=== PATIENT | male | born 1940 | race Caucasian/White ===

== ENCOUNTER 2018-08-13 02:51 | Emergency (ER) | payer MEDICARE, OTHER ==
[~2018-08-13] VITALS: Ht 182.9 cm; Wt 130.2 kg
[~2018-08-13 02:51] MED LIST: ALLOPURINOL100 MG PO; CARVEDILOL12.5 MG PO; CITALOPRAM HBR40 MG PO; CLOPIDOGREL75 MG PO; COLESTIPOL HCL1 GM PO; DEXILANT30 MG PO; DOXAZOSIN MESYLA8 MG PO; HYDRALAZINE HCL25 MG PO; ISOSORBIDE MONO60 MG PO; LOSARTAN POTASS50 MG PO; NITROSTAT0.4 MG SL; NOVOLOG100 UNITS/ IV; TORSEMIDE20 MG PO; TOUJEO SOL300 UNIT/1 SQ; TRADJENTA5 MG PO
== END 2018-08-13 03:40 | disposition home or self-care (01) ==
LOC: ED 02:51
PROC: 093K7ZZ Control Bleeding in Nasal Mucosa and Soft Tissue, Via Natural or Artificial Opening (ICD-10-PCS; principal; 2018-08-13)
DX: R04.0 Epistaxis (principal); I10 Essential (primary) hypertension; F41.0 Panic disorder [episodic paroxysmal anxiety]; E11.9 Type 2 diabetes mellitus without complications; I25.2 Old myocardial infarction; Z87.891 Personal history of nicotine dependence; Z88.8 Allergy status to other drugs, medicaments and biological substances; Z79.899 Other long term (current) drug therapy; Z79.4 Long term (current) use of insulin
CPT/HCPCS: 30903; 99283-25

== ENCOUNTER 2018-08-14 12:56 | Emergency (ER) | payer MEDICARE, OTHER ==
[~2018-08-14] VITALS: Ht 182.9 cm; Wt 130.2 kg
--- OUTSIDE RECORDS SUMMARY | 2018-08-14 12:58 | XMS ---
PreManage Notification: DEXTER DAVE Security Polisher Balance Screwhead Events No recent Security Events currently on file CRITERIA MET - [facility] - 2 Visits in 30 Days CARE PROVIDERS Devaughn Simmons Current PHONE: Unknown Other Current PHONE: Unknown Florencia has no Care Guidelines for this patient. Yris VISIT COUNT ([address] [facility] TOTAL 2 NOTE: Visits indicate total known visits. ED/UCC VISIT TRACKING (12 MO.) 08/14/2018 12:56 [facility] [place] TYPE: Emergency COMPLAINT: - RECHECK 08/13/2018 02:51 [facility] [place] TYPE: Emergency COMPLAINT: - NOSE BLEED INPATIENT VISIT TRACKING (12 MO.) No inpatient visits to display in this time frame [email or web address]
== END 2018-08-14 13:38 | disposition home or self-care (01) ==
LOC: ED 12:56
DX: Z48.00 Encounter for change or removal of nonsurgical wound dressing (principal); I10 Essential (primary) hypertension; F41.0 Panic disorder [episodic paroxysmal anxiety]; E11.9 Type 2 diabetes mellitus without complications; I25.2 Old myocardial infarction; Z87.891 Personal history of nicotine dependence; Z95.5 Presence of coronary angioplasty implant and graft; Z88.6 Allergy status to analgesic agent; Z79.4 Long term (current) use of insulin; Z79.899 Other long term (current) drug therapy
CPT/HCPCS: 99282

== ENCOUNTER 2019-03-25 11:37 | Emergency (ER) | payer MEDICARE, OTHER ==
[~2019-03-25] VITALS: Ht 182.9 cm; Wt 127.0 kg
--- OUTSIDE RECORDS SUMMARY | ~2019-03-25 | XMS | Encounter Summary ---
Demographics + + + | Address | [address] | | | [place] [address] | + + + | Home Phone | | + + + | Preferred Language | Unknown | + + + | Marital Status | | + + + | Orthodox Affiliation | Unknown | + + + | Race | Unknown | + + + | Ethnic Group | Unknown | + + + Author + + + | Author | [employer] [facility] (Historical as of | | | 01-30-19) | + + + | Organization | [facility] (Historical as of | | | 01-30-19) | + + + | Address | Unknown | + + + | Phone | Unavailable | + + + Support + + +---------+ + | Name | Relationship | Address | Phone | + + +---------+ + | Hammad Llamas | ECON | Unknown | | + + +---------+ + | Paco Llamas | ECON | Unknown | | + + +---------+ + | Gopal Llamas | ECON | Unknown | | + + +---------+ + Care Team Providers + +------+ + | Care Car Pilot Name | Role | Phone | + +------+ + | James Houston MD | PCP | | + +------+ + Reason for Visit + + + | Reason | Comments | + + + | Medication Refill | | + + + Encounter Details +--------+--------+ + + + | Date | Type | Department | Care Team | Description | +--------+--------+ + + + | 01/25/ | Refill | [facility] | Mora, | Medication Refill | | 2019 | | [facility] | [facility] | | | | | [address] | | | | | | [place] | | | | | | [address] | | | | | | [phone] | | | +--------+--------+ + + + Social History + + + +--------+ + | Tobacco Use | Types | Packs/Day | Years | Date | | | | | Used | | + + + +--------+ + | Former Smoker | Cigarettes | 3 | 20 | Quit: 06/16/1985 | + + + +--------+ + + +---+---+ + | Smokeless Tobacco: | | | Quit: | | Former User | | | 06/20/18 | | | | | 86 | + +---+---+ + + + +---------+ + | Alcohol Use | Drinks/We | oz/Week | Comments | | | ek | | | + + +---------+ + | Yes | 1 Cans | 0.6 | | | | of beer | | | | | 0 | | | | | Standard | | | | | drinks or | | | | | | | | | | equivalen | | | | | t | | | + + +---------+ + + + + | Sex Assigned at | Date Recorded | | | | + + + | Not on file | | + + + as of this encounter Plan of Treatment Not on fileas of this encounter Visit Diagnoses + + | Diagnosis | + + | Hyperlipidemia LDL goal <100 | + + | Other and unspecified hyperlipidemia | + +"
--- OUTSIDE RECORDS SUMMARY | ~2019-03-25 | XMS | Encounter Summary ---
Demographics + + + | Address | [address] | | | [place] [address] | + + + | Home Phone | | + + + | Preferred Language | Unknown | + + + | Marital Status | | + + + | Shinto Affiliation | Unknown | + + + | Race | Unknown | + + + | Ethnic Group | Unknown | + + + Author + + + | Author | [employer] [facility] (Historical as of | | | 01-30-19) | + + + | Organization | [facility] (Historical as of | | | 01-30-19) [...] Team Providers + +------+ + | Care Suction Drum Drier Operator Name | Role | Phone | + +------+ + | James Houston MD | PCP | | + +------+ + Encounter Details +--------+ + + + + | Date | Type | Department | Care Team | Description | +--------+ + + + + | 01/15/ | Orders Only | [facility] | Bassem, | CKD (chronic kidney | | 2019 | | [address] | SHERRELL Heard | disease) stage 3, | | | | [address] | | GFR 30-59 ml/min | | | | [place] [address] | | ([facility]); Essential | | | | [phone] | | hypertension, | | | | | | benign; | | | | | | Hyperuricemia | +--------+ + + + + Social History + + [...] Treatment Not on fileas of this encounter Procedures + +--------+ + + + | [...] | | + +--------+ + + + in this encounter Results Uric acid (01/14/2019 1:55 PM) + +-------+ [...] + + + | [facility] | [address] | [place] [address] | [phone] | | LABORATORY | Blvd. | | | + + + + + Protein / creatinine ratio, urine (01/14/2019 1:55 [...] | + + + + + | [facility] | [address] | [place] [address] | [phone] | | LABORATORY | Blvd. | | [...] + + + | [facility] | [address] | [place] [address] | [phone] | | LABORATORY | Blvd. | | | + + + + + Magnesium (01/14/2019 1:55 PM) + +-------+ + + | Component | Value | Ref Range | Performed At | + +-------+ + + | MAGNESIUM | 1.8 | 1.7 - 2.5 mg/dL | [facility] | | | | | LABORATORY | + +-------+ + + + + | Specimen | + + | Blood | + + + + + + + | Performing | Address | City/State/Zipcode | Phone Number | | Organization | | | | + + + + + | [facility] | [address] | [place] [address] | [phone] | | LABORATORY | [address] | | [...] + + + | [facility] | [address] | [place] [address] | [phone] | | LABORATORY | [place] | | | + + + + + in this encounter Visit Diagnoses + + | Diagnosis | + + | CKD (chronic kidney disease) stage 3, GFR 30-59 ml/min (HCC) | + + | Chronic kidney disease, Stage III (moderate) | + + | Essential hypertension, benign | + + | Hyperuricemia | + + | Other abnormal blood chemistry | + +"
--- OUTSIDE RECORDS SUMMARY | ~2019-03-25 | XMS | Encounter Summary ---
Demographics + + + | Address | [address] | | | [place] [address] | + + + | Home Phone | | + + + | Preferred Language | Unknown | + + + | Marital Status | | + + + | Scientology Affiliation | Unknown | + + + | Race | Unknown | + + + | Ethnic Group | Unknown | + + + Author + + + | Author | [facility] (Historical as of | | | 01-30-19) | + + + | Organization | [facility] (Historical as of | | | 01-30-19) | + + + | Address | Unknown | + + + | Phone | Unavailable | + + + Support + + +---------+ + | Name | Relationship | Address | Phone | + + +---------+ + | Hammad Llamas | ECON | Unknown | | + + +---------+ + | Paco Llaams | ECON | Unknown | | + + +---------+ + | Gopal Llamas | ECON | Unknown | | + + +---------+ + Care Team Providers + +------+ + | Care Supervisor Ornamental Ironworking Name | Role | Phone | + +------+ + | James Houston MD | PCP | | + +------+ + Reason for Visit + + + | Reason | Comments | + + + | Labs Only | | + + + Encounter Details +--------+ + + + + | Date | Type | Department | Care Team | Description | +--------+ + + + + | 12/29/ | Documentati | [facility] | Marquez Cuellar MA | Labs Only | | 2019 | on Only | [facility] | | | | | | [address] | | | | | | [place] | | | | | | [address] | | | | | | [phone] | | | +--------+ + + + [...]
--- OUTSIDE RECORDS SUMMARY | ~2019-03-25 | XMS | Encounter Summary ---
Demographics + + + | Address | [address] | | | [place] [address] | + + + | Home Phone | | + + + | Preferred Language | Unknown | + + + | Marital Status | | + + + | Presybeterian Affiliation | Unknown | + + + | Race | Unknown | + + + | Ethnic Group | Unknown | + + + Author + + + | Author | [employer] [facility] (Historical as of | | | 01-30-19) | + + + | Organization | [facility] (Historical as of | | | 01-30-19) [...] Team Providers + +------+ + | Care Staff Weapons Officer Name | Role | Phone | + +------+ + | James Houston MD | PCP | | + +------+ + Reason for Visit +--------+ + | Reason | Comments | +--------+ + | Other | appt/labs reminder | +--------+ + Encounter Details +--------+ + + + + | Date | Type | Department | Care Team | Description | +--------+ + + + + | 01/07/ | Telephone | [facility] | Sara, | Other (appt/labs | | 2018 | | [address] | [address] | reminder) | | | | [address] | | | | | | [place] [address] | | | | | | [phone] | | | +--------+ + + + [...]
--- OUTSIDE RECORDS SUMMARY | ~2019-03-25 | XMS | Encounter Summary ---
Demographics + + + | Address | [address] | | | [place] [address] | + + + | Home Phone | | + + + | Preferred Language | Unknown | + + + | Marital Status | | + + + | Rastafari Affiliation | Unknown | + + + | Race | Unknown | + + + | Ethnic Group | Unknown | + + + Author + + + | Author | [employer] (Historical as of | | | 01-30-19) | + + + | Organization | [facility] [employer] (Historical as of | | | 01-30-19) [...] Team Providers + +------+ + | Care Water Technician Name | Role | Phone | + +------+ + | James Houston MD | PCP | | + +------+ + Reason for Visit + + + | Reason | Comments | + + + | Labs Only | Collected 12/25/18 | + + + Encounter Details +--------+ + + + + | Date | Type | Department | Care Team | Description | +--------+ + + + + | 01/08/ | Documentati | [facility] | Magda Turner | Labs Only (Collected | | 2019 | on Only | Muriel [facility]agat | JAK | 12/25/18) | | | | [address] | | | | | | [place] | | | | | | [address] | | | | | | [phone] | | | +--------+ + + + [...]
--- OUTSIDE RECORDS SUMMARY | ~2019-03-25 | XMS | Clinical Summary ---
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 | + + Resolved Problems + + [...] | | 2019 | Visit | | NURSING CONSULTANT | disease) stage 3, | | | | | | GFR 30-59 ml/min | | | | | | ([facility]) (Primary Dx); | | | | | [...] ml/min | | | | | | ([facility]); Essential | | | | | | hypertension, | | | | | | benign; | | | | | | Hyperuricemia | +--------+ + + + + | 01/08/ | Documentati | | Magda Turner | Labs Only (Collected | 2018 | on Only | | CONSTITUTIONAL LAW PROFESSOR | 12/25/18) | +--------+ + + + [...] + + + | [facility] | [address] | [place] [address] | [phone] | | LABORATORY | [address]vd. | | [...] + + + | [facility] | [address] | [place] [address] | [phone] | | LABORATORY | Blvd. | | [...] + + + | [facility] | [address] | [place] [address] | [phone] | | LABORATORY | [address]vd. | | | + + + + + Magnesium (01/14/2019 1:55 PM) + +-------+ + + | Component | Value | Ref Range | Performed At | + +-------+ + + | MAGNESIUM | 1.8 | 1.7 - 2.5 mg/dL | [facility] | | | | | LABORATORY | + +-------+ + + + + | Specimen | + + | Blood | + + + + + + + | Performing | Address | City/State/Zipcode | Phone Number | | Organization | | | | + + + + + | [facility] | [address] | [place] [address] | [phone] | | LABORATORY | [address] | | [...] | + + + + + | [facility] | [address] | [place] [address] | [phone] | | LABORATORY | Blvd. | | [...] +------+-------+ + | MEDICARE | MEDICA | [id number] | | | [address] | | | [place] | | | | [place] [address] | | | IP-OP | | | | | + +--------+ +------+-------+ + | MEDICAID | [facility] | [id number] | | | [address] | | | N | | | | [place], [place] | | | [place] | | | | [address] | | | COOLING TOWER OPERATOR | | | | | + +--------+ [...] | Self | [birth year] | Home: | [address] | | | [place] | | 1941 | [phone] [address] [place], | | | ge | | | [address] | [place] [address] | + +--------+ +--------+ + +
--- OUTSIDE RECORDS SUMMARY | ~2019-03-25 | XMS | Encounter Summary ---
Demographics + + + | Address | [address] | | | [place] [address] | + + + | Home Phone | | + + + | Preferred Language | Unknown | + + + | Marital Status | | + + + | Yarsanism Affiliation | Unknown | + + + | Race | Unknown | + + + | Ethnic Group | Unknown | + + + Author + + + | Author | [facility] | | | and [place] | + + + | Organization | [facility] | | | and [...] Team Providers + +------+ + | Care Physician Representative Name | Role | Phone | + +------+ + | James Houston | PCP | | | MD | | | + +------+ + Encounter Details +--------+ + + + + | Date | Type | Department | Care Team | Description | +--------+ + + + + | 01/25/ | Orders Only | [facility] | Sherri Barraza | | | 2018 | | CARDIOLOGY KP | [address] | | | | | [address] | [address] | | | | | [place], [place] | [place], [place] | | | | | [address] | [address] | | | | | [phone] | | | +--------+ + + + [...]
--- OUTSIDE RECORDS SUMMARY | ~2019-03-25 | XMS | Encounter Summary ---
Demographics + + + | Address | [address] | | | [place] [address] | + + + | Home Phone | | + + + | Preferred Language | Unknown | + + + | Marital Status | | + + + | Holiness Affiliation | Unknown | + + + | Race | Unknown | + + + | Ethnic Group | Unknown | + + + Author + + + | Author | [employer] [facility] (Historical as of | | | 01-30-19) | + + + | Organization | [facility] (Historical as of | | | 01-30-19) [...] Team Providers + +------+ + | Care Carton Making Machinist Name | Role | Phone | + [...] [place] | | | | | | [address] | | | | | | [phone] | | | +--------+ + + + [...]
--- OUTSIDE RECORDS SUMMARY | ~2019-03-25 | XMS | Clinical Summary ---
Demographics + + + | Address | [address] | | | [place] [address] | + + + | Home Phone | | + + + | Preferred Language | Unknown | + + + | Marital Status | | + + + | Faith Affiliation | Unknown | + + + | Race | Unknown | + + + | Ethnic Group | Unknown | + + + Author + + + | Author | [facility] | | | and [place] | + + + | Organization | [facility] | | | [...] Team Providers + +------+ + | Care Steam Distribution Supervisor Name | Role | Phone | + +------+ + | James Houston | PCP | | | MD | | | + +------+ + Allergies + [...] | + + + + + + Medications + + + +---------+------+------+-------+ | Medication | Sig | Dispensed | Refills | Star | End | Statu | | | | | | t | Date | s | | | | | | Date | | | + + + +---------+------+------+-------+ | CINNAMON PO | Take 2 tablets by | | 0 | 09/0 | | Activ | | | mouth daily. | | | 4/20 | | e | | | | | | 15 | | | + + + +---------+------+------+-------+ | linagliptin | Take 5 mg by mouth | | 0 | 08/1 | | Activ | | (TRADJENTA) 5 mg | nightly. | | | 7/20 | | e | | tablet | | | | 12 | | | + + + +---------+------+------+-------+ | hydrALAZINE | Take 25 mg by mouth | | 0 | 08/1 | | Activ | | (APRESOLINE) 25 mg | 2 (two) times daily. | | | 01/02 | | e | | tablet | | | | 12 | | | + + + +---------+------+------+-------+ | dexlansoprazole | Take 30 mg by mouth | | 0 | 03/0 | | Activ | | (DEXILANT) [address] | every evening. | | | 12/03 | | e | | capsule | | | | 15 | | | + + + +---------+------+------+-------+ | citalopram | Take 40 mg by mouth | | 0 | 01/0 | | Activ | | (CELEXA) 40 mg | daily. | | | 11/02 | | e | | tablet | | | | 12 | | | + + + +---------+------+------+-------+ | cholecalciferol | Take 5,000 Units by | | 0 | /2 | | Activ | | (CHOLECALCIFEROL) | mouth daily. | | | 01/02 | | e | | 2000 units TABS | | | | 17 | | | + + + +---------+------+------+-------+ | HUMULIN R U-500 | 95 units am, 65 noon | | 0 | 01/1 | | Activ | | KWIKPEN 500 UNIT/ML | , 95 units pm, | | | 8/20 | | e | | concentrated | varies with blood | | | 18 | | | | injection (pen) | sugar | | | | | | + + + +---------+------+------+-------+ | allopurinol | Take 1 tablet by | 90 | 3 | 07/3 | | Activ | | (ZYLOPRIM) 100 mg | mouth daily. | tablet | | 0/20 | | e | | tablet | | | | 18 | | | + + + +---------+------+------+-------+ | carvedilol (COREG) | take 1 tablet by | 180 | 3 | 05/2 | | Activ | | 25 mg tablet | mouth twice a day | tablet | | 0/20 | | e | | | with meals | | | 19 | | | + + + +---------+------+------+-------+ | losartan (COZAAR) | Take 1 tablet by | 90 | 3 | 06/1 | | Activ | | 25 mg tablet | mouth nightly. | tablet | | 0/20 | | e | | | | | | 19 | | | + + + +---------+------+------+-------+ | magnesium, as | Take 250 mg by mouth | | 0 | 06/1 | | Activ | | oxide, 250 MG tablet | daily. | | | 0/20 | | e | | | | | | 19 | | | + + + +---------+------+------+-------+ | clopidogrel | Take 1 tablet by | 90 | 3 | 06/1 | | Activ | | (PLAVIX) 75 mg | mouth daily. | tablet | | 0/20 | | e | | tablet | | | | 19 | | | + + + +---------+------+------+-------+ | fenofibrate | Take 1 tablet by | 90 | 3 | 06/1 | 06/0 | Activ | | (LOFIBRA) 54 mg | mouth daily. | tablet | | 0/20 | 9/20 | e | | tablet | | | | 19 | 20 | | + + + +---------+------+------+-------+ | torsemide | Take 1 tablet by | 90 | 3 | 06/1 | | Activ | | (DEMADEX) 10 mg | mouth daily. | tablet | | 0/20 | | e | | tablet | | | | 19 | | | + + + +---------+------+------+-------+ | nitroglycerin | Place 1 tablet under | 25 | 3 | 06/1 | | Activ | | (NITROSTAT) 0.4 mg | the tongue every 5 | tablet | | 0/20 | | e | | SL tablet | (five) minutes as | | | 19 | | | | | needed for Chest | | | | | | | | pain. | | | | | | + + + +---------+------+------+-------+ | colestipol | Take 2 tablets by | 360 | 0 | 08/1 | | Activ | | (COLESTID) 1 g | mouth 2 (two) times | tablet | | 2/20 | | e | | tablet | daily. | | | 19 | | | + + + +---------+------+------+-------+ Active Problems + + + | Problem | Noted Date | + + + | Statin intolerance | 05/25/2018 | + + + | Hyperlipidemia LDL goal <100 | 04/21/2017 | + + + | History of PTCA | 04/21/2017 | + + + | Coronary artery disease involving hopi coronary artery of | 09/15/2013 | | hopi heart | | + + + | CKD (chronic kidney disease) stage 3, GFR 30-59 ml/min | 09/15/2013 | + + + | Hyperuricemia | 01/31/2012 | + + + | Obesity | 01/31/2012 | + + + | S/P partial colectomy | 01/31/2012 | + + + + + | Overview: For colon cancer in 1985. | + + + + + | Lymphoma | 01/31/2012 | + + + + + | Overview: S/p resection in 2009 | + + + + + | Anxiety disorder | 01/31/2012 | + + + | GERD (gastroesophageal reflux disease) | 01/31/2012 | + + + | Hypertension with goal blood pressure less than 140/80 | 06/24/2011 | + + + | Past myocardial infarction | 06/20/2011 | + + + | Dyslipidemia | 06/20/2011 | + + + | Anemia | 06/20/2011 | + + + | Type 2 diabetes mellitus with stage 3 chronic kidney disease, | 06/20/2011 | | with long-term current use of insulin | | + + + Resolved Problems + + + + | Problem | Noted | Resolved | | | Date | Date | + + + + | Essential hypertension, benign | 01/31/20 | | | | 12 | 9 | + + + + | Coronary artery disease involving hopi coronary artery of | 06/20/19 | | | hopi heart without angina pectoris | 12 | 9 | + + + + Encounters +--------+ + + + + | Date | Type | Specialty | Care Team | Description | +--------+ + + + + | 01/29/ | Orders Only | Cardiology | Devin Milena | Hyperlipidemia; | | 2018 | | | LOLIS Briggs | Essential (primary) | | | | | | hypertension; Type 2 | | | | | | diabetes mellitus | | | | | | with diabetic | | | | | | chronic kidney | | | | | | disease (HCC) | +--------+ + + + + | 01/25/ | Orders Only | Cardiology | Sherri Barraza | | | 2018 | | | KENNETH Jiménez | | +--------+ + + + + | 01/14/ | Orders Only | Nephrology | Guilherme Shaffer, | | | 2018 | | | BRIM BUSTER | | +--------+ + + + + from Last 3 Months Immunizations + + + + | Name | Dates Previously Given | Next Due | + + + + | INFLUENZA 65 Y OR >, | 05/26/2018 | | | TRIVALENT HIGH-DOSE | | | + + + + | INFLUENZA PF 4Y OR | 07/07/2017 | | | >,QUAD DERIVED FROM | | | | TISS-CULT | | | + + + + | INFLUENZA TRIV | 03/25/2013, 04/30/2010, 04/24/2006, | | | W/PRES(PED/ADOL/ADUL | 04/11/2005, 04/05/2003 | | | T),MULTIDOSE | | | + + + + | PNEUMOCOCCAL | 04/24/2015 | | | CONJUGATE 13-VALENT | | | | (PCV13) | | | + + + + | PNEUMOCOCCAL | 12/22/2017, 11/15/2010, 05/01/2005 | | | POLYSACCHARIDE | | | | 23-VALENT (PPSV23) | | | + + + + | TDAP, (ADOL/ADULT) | 12/11/2015, 11/25/2005 | | + + + + | ZOSTER, 1 DOSE | 06/25/2012 | | | (ZOSTAVAX) | | | + + + + Family [...] 97) | | + +------+ + + | Mother | | | | + +------+ + + Social History + +-------+ +--------+------+ [...] recent travel history available. | + + Last Filed Vital Signs + + + + | Vital Sign | Reading | Time Taken | + + + + | Blood Pressure | 102/50 | 01/15/2019947 PDT | + + + + | Pulse | 66 | 01/15/2019947 PDT | + + + + | Temperature | 36.5 C (97.7 F) | 01/12/201844 PDT | + + + + | Respiratory Rate | 20 | 05/25/20188 PST | + + + + | Oxygen Saturation | - | - | + + + + | Inhaled Oxygen | - | - | | Concentration | | | + + + + | Weight | 127.2 kg (280 lb 6.4 | 01/15/2019947 PDT | | | oz) | | + + + + | Height | 180.3 cm (5' 11") | 01/15/2019947 PDT | + + + + | Body Mass Index | 39.11 | 01/15/2019947 PDT | + + + + Plan of Treatment + + + + + | Health Maintenance | Due Date | Last Done | Comments | + + + + + | Diabetic Eye Exam | | | | | | 9 | | | + + + + + | Diabetic Foot Exam | | | | | | 9 | | | + + + + + | Vaccine: Zoster (2 | | 06/25/2012 | | | of 3) | 3 | | | + + + + + | Hemoglobin A1c | | 2015, 09/21/2013 | | | Screening | 6 | | | + + + + + | Adult Annual | | | | | Wellness Visit | 9 | | | + + + + + | Vaccine: Influenza | | 05/26/2018, 07/07/2017, | | | (#1) | 9 | 07/07/2017, Additional history | | | | | [...] | + +--------+ + + + | PROTEIN/CREATININE | Routin | 01/14/2019 | | Results for this | | RATIO, URINE | e | 13:55 PDT | | procedure are in the | | | | | | results section. | + +--------+ + + + | EXTERNAL LAB: CBC | Routin | 01/14/2019 | | Results for this | | | e | 13:55 PDT | | procedure are in the | | | | | | results section. | + +--------+ + + + | URIC ACID | Routin | 01/14/2019 | | Results for this | | | e | 13:55 PDT | | procedure are in the | | | | | | results section. | + +--------+ + + + | MAGNESIUM | Routin | 01/14/2019 | | Results for this | | | e | 13:55 PDT | | procedure are in the | | | | | | results section. | + +--------+ + + + | RENAL FUNCTION PANEL | Routin | 01/14/2019 | | Results for this | | | e | 13:55 PDT | | procedure are in the | | | | | | results section. | + +--------+ + + + from Last 3 Months Results External Lab: JEANNIE (01/14/2019 13:55 PDT) + + + + + + | Component | Value | Ref Range | Performed | Pathologist | | | | | At | Signature | + + + + + + | WBC | 7.1 | 4.5 - 11.0 10 | EXTERNAL | | | | | | LAB | | + + + + + + | RED CELL | 4.88 | 4.3 - 5.7 10 | EXTERNAL | | | COUNT | | | LAB | | + + + + + + | Hgb | 13.0 (A) | 13.5 - 18.0 | EXTERNAL | | | | | g/dL | LAB | | + + + + + + | Hematocrit, | 39.4 (A) | 41 - 50 % | EXTERNAL | | | POC | | | LAB | | + + + + + + | MCV | 80.9 (A) | 81 - 99 fL | EXTERNAL | | | | | | LAB | | + + + + + + | MCH | 27 | 27 - 33 pg | EXTERNAL | | | | | | LAB | | + + + + + + | MCHC | 33 | 30 - 36 g/dL | EXTERNAL | | | | | | LAB | | + + + + + + | Platelet | 221 | 140 - 440 K/ L | EXTERNAL | | | Count | | | LAB | | | Plasma | | | | | + + + + + + | RDW-CV | 14.6 | 10.5 - 15.0 % | EXTERNAL | | | | | | LAB | | + + + + + + | MPV | | fL | EXTERNAL | | | | | | LAB | | + + + + + + | Differentia | | | EXTERNAL | | | l Type | | | LAB | | + + + + + + | % | 61.9 | 39 - 80 % | EXTERNAL | | | Neutrophils | | | LAB | | + + + + + + | % | 26.5 | 24 - 44 % | EXTERNAL | | | Lymphocytes | | | LAB | | + + + + + + | % Monocytes | 5.6 | 0 - 12 % | EXTERNAL | | | | | | LAB | | + + + + + + | % | 5.1 | 0 - 6 % | EXTERNAL | | | Eosinophils | | | LAB | | + + + + + + | % Basophils | 0.9 | 0 - 2 % | EXTERNAL | | | | | | LAB | | + + + + + + | Absolute | | / L | EXTERNAL | | | Neutrophils | | | LAB | | + + + + + + | Absolute | | / L | EXTERNAL | | | Lymphocytes | | | LAB | | + + + + + + | Absolute | | / L | EXTERNAL | | | Monocytes | | | LAB | | + + + + + + | Absolute | | / L | EXTERNAL | | | Eosinophils | | | LAB | | + + + + + + | Absolute | | / L | EXTERNAL | | | Basophils | | | LAB | | + + + + + + + + | Specimen | + + | Blood | + + + +---------+ + + | Performing | Address | City/State/Zipcode | Phone Number | | Organization | | | | + +---------+ + + | EXTERNAL LAB | | | | + +---------+ + + Protein/Creatinine Ratio, Urine (01/14/2019 13:55 PDT) + +-------+ + + + | Component | Value | Ref Range | Performed | Pathologist | | | | | At | Signature | + +-------+ + + + | Protein/Cre | 80.2 | 0 - 150 | EXTERNAL | | | at Ratio | | | LAB | | + +-------+ + + + + + | Specimen | + + | Urine | + + + +---------+ + + | Performing | Address | City/State/Zipcode | Phone Number | | Organization | | | | + +---------+ + + | EXTERNAL LAB | | | | + +---------+ + + Uric Acid (01/14/2019 13:55 PDT) + +-------+ + + + | Component | Value | Ref Range | Performed | Pathologist | | | | | At | Signature | + +-------+ + + + | Uric Acid | 6.8 | 4.4 - 7.6 | EXTERNAL | | | | | | LAB | | + +-------+ + + + + + | Specimen | + + | Blood | + + + +---------+ + + | Performing | Address | City/State/Zipcode | Phone Number | | Organization | | | | + +---------+ + + | EXTERNAL LAB | | | | + +---------+ + + Magnesium (01/14/2019 13:55 PDT) + +-------+ + + + | Component | Value | Ref Range | Performed | Pathologist | | | | | At | Signature | + +-------+ + + + | Magnesium | 1.8 | 1.7 - 2.5 mg/dL | EXTERNAL | | | | | | LAB | | + +-------+ + + + + + | Specimen | + + | Blood | + + + +---------+ + + | Performing | Address | City/State/Zipcode | Phone Number | | Organization | | | | + +---------+ + + | EXTERNAL LAB | | | | + +---------+ + + Renal Function Panel (01/14/2019 13:55 PDT) + + + + + + | Component | Value | Ref Range | Performed | Pathologist | | | | | At | Signature | + + + + + + | Glucose, | 407 (A) | 70 - 100 mg/dL | EXTERNAL | | | Fasting | | | LAB | | + + + + + + | BUN | 32 (A) | 6 - 23 mg/dL | EXTERNAL | | | | | | LAB | | + + + + + + | Creatinine | 1.72 (A) | 0.70 - 1.18 | EXTERNAL | | | | | mg/dL | LAB | | + + + + + + | PHOSPHORUS | 2.6 | 2.5 - 5.0 mg/dL | EXTERNAL | | | | | | LAB | | + + + + + + | Albumin | 4.4 | 3.5 - 5.0 | EXTERNAL | | | | | | LAB | | + + + + + + | Na | 135 | 132 - 143 | EXTERNAL | | | | | mmol/L | LAB | | + + + + + + | K | 4.2 | 3.6 - 5.1 | EXTERNAL | | | | | mmol/L | LAB | | + + + + + + | Cl | 99 | 95 - 112 mmol/L | EXTERNAL | | | | | | LAB | | + + + + + + | CO2 | 21 | 19 - 31 mmol/L | EXTERNAL | | | | | | LAB | | + + + + + + | Anion Gap | 19.2 | 7 - 21 mmol/L | EXTERNAL | | | | | | LAB | | + + + + + + | eGFR if not | | | EXTERNAL | | | | | | LAB | | | CZECH | | | | | + + + + + + | Phosphorus, | | | EXTERNAL | | | Inorganic | | | LAB | | + + + + + + | BUN/Creatin | 18.6 | 6.0 - 28.6 | EXTERNAL | | | ine Ratio | | | LAB | | + + + + + + | Calcium | 10.0 | 8.5 - 10.3 | EXTERNAL | | | | | mg/dL | LAB | | + + + + + + | Estimated | 39 (A) | 60 - 140 mg/dL | EXTERNAL | | | GFR | | | LAB | | + + + + + + + + | Specimen | + + | Blood | + + + +---------+ + + | Performing | Address | City/State/Zipcode | Phone Number | | Organization | | | | + +---------+ + + | EXTERNAL LAB | | | | + +---------+ + + from Last 3 Months Insurance + +--------+ +--------+ +---------+--------+ | Payer | Benefi | Subscriber | Effect | Phone | Address | Type | | | t Plan | ID | nandini | | | | | | / | | Dates | | | | | | Group | | | | | | + +--------+ +--------+ +---------+--------+ | MEDICARE | MEDICA | [id number] | 06/16/19 | [phone] | | Medica | | | RE | | 06-Pre | 5 | | re | | | PART A | | sent | | | | | | AND B | | | | | | + +--------+ +--------+ +---------+--------+ | [employer] | MODA | [id number] | | [phone] | | Medica | | MEDICAID HMO | HEALTH | | 019-Pr | 1 | | id | | | MDCD | | esent | | | | | | [place]MO [place] | | | | | | + +--------+ +--------+ +---------+--------+ + +--------+ +--------+ + + | Guarantor Name | Accoun | Relation to | Date | Phone | Billing Address | | | t Type | Patient | of | | | | | | | | | | + +--------+ +--------+ + + | Jhonatan Llamas | Person | Self | [birth year] | [address] [facility] | | | al/Fam | | 1941 | [phone] | [address] [place], | | | ge | | | [address] ([place]) | [place] [address] | + +--------+ +--------+ + + Advance Directives Patient has advance care planning documents on file. For more information, please contact:[facility] [place] [address]
--- OUTSIDE RECORDS SUMMARY | ~2019-03-25 | XMS | Encounter Summary ---
Demographics + + + | Address | [address] | | | [place] [address] | + + + | Home Phone | | + + + | Preferred Language | Unknown | + + + | Marital Status | | + + + | Gnosticist Affiliation | Unknown | + + + | Race | Unknown | + + + | Ethnic Group | Unknown | + + + Author + + + | Author | [facility] [employer] (Historical as of | | | 01-30-19) | + + + | Organization | [facility] [employer] (Historical as of | | | 01-30-19) [...] Team Providers + +------+ + | Care Locator Name | Role | Phone | + [...] + | 01/25/ | Refill | TONY Hobbs | Milena Beltran | Medication Refill | | 2019 | | [place] | [address] | | | | | [address] | Scarlet [place] | | | | | [facility] [address] | [place] [address] | | | | | [place] [address] | [phone] | | | | | [phone] | | | +--------+--------+ + + + [...]
--- OUTSIDE RECORDS SUMMARY | ~2019-03-25 | XMS | Encounter Summary ---
Demographics + + + | Address | [address] [place] [place] | | | [place] [address] | + + + | Home Phone | | + + + | Preferred Language | Unknown | + + + | Marital Status | | + + + | Spiritism Affiliation | Unknown | + + + | Race | Unknown | + + + | Ethnic Group | Unknown | + + + Author + + + | Author | [employer] (Historical as of | | | 01-30-19) | + + + | Organization | [facility] [employer] (Historical as of | | | 01-30-19) [...] Team Providers + +------+ + | Care Dining Service Inspector Name | Role | Phone | + [...] Scarlet [address] | | | | | [facility] [address] | [place] [address] | | | | | [place] [address] | [phone] | | | | | [phone] | | | +--------+--------+ + + + [...]
--- OUTSIDE RECORDS SUMMARY | ~2019-03-25 | XMS | Encounter Summary ---
Demographics + + + | Address | [address] | | | [place] [address] | + + + | Home Phone | | + + + | Preferred Language | Unknown | + + + | Marital Status | | + + + | Episcopal Affiliation | Unknown | + + + | Race | Unknown | + + + | Ethnic Group | Unknown | + + + Author + + + | Author | [employer] (Historical as of | | | 01-30-19) | + + + | Organization | [facility] [employer] (Historical as of | | | 01-30-19) [...] Team Providers + +------+ + | Care Quality Control Associate Name | Role | Phone | + [...] ml/min | | | | [place] [address] | [place] [address] | ([facility]) (Primary Dx); | | | | [phone] | [phone] | Essential | | | | | [...] Problem List Diagnosis Coronary artery disease involving nenana coronary artery of nenana heart without angina pectoris Past myocardial infarction Dyslipidemia Anemia Type 2 diabetes mellitus with stage 3 chronic kidney disease, with long-term current us e of insulin ([facility]) Hypertension with goal blood pressure less than 140/80 Essential hypertension, benign Hyperuricemia Obesity S/P partial colectomy Lymphoma ([facility]) Anxiety disorder GERD (gastroesophageal reflux disease) Coronary artery disease involving nenana coronary artery of nenana heart CKD (chronic kidney disease) stage 3, GFR 30-59 ml/min ([facility]) Hyperlipidemia LDL goal <100 History of PTCA [...] 06/22/2011 LABIRON 9.2 04/20/2012 LABPROT 80.2 01/14/2019 [id number] 25 (A) 01/07/2018 Assessment: Mr. Dave is [...] blood pressure in the appropriate manner at [facility] e. he is to call us [...] RFP, Magnesium, CBC, uric acid, Urine total njbhmfs-cx-nhtappjgt e ratio. Hypertension: he will bring me [...] questions or concerns. Truly yours, Guilherme Shaffer ENGAGEMENT LIAISON [facility] Nephrologyin this encounter Plan of Treatment Not on fileas of this encounter Visit Diagnoses + + | Diagnosis | + + | CKD (chronic kidney disease) stage 3, GFR 30-59 ml/min ([facility]) - Primary | + + | Chronic kidney disease, Stage III (moderate) | + + | Essential hypertension, benign | + + | Hypertension with goal blood pressure less than 140/80 | + +
--- OUTSIDE RECORDS SUMMARY | ~2019-03-25 | XMS | Encounter Summary ---
Demographics + + + | Address | [address] | | | [place] [address] | + + + | Home Phone | | + + + | Preferred Language | Unknown | + + + | Marital Status | | + + + | Islam Affiliation | Unknown | + + + | Race | Unknown | + + + | Ethnic Group | Unknown | + + + Author + + + | Author | [employer] (Historical as of | | | 01-30-19) | + + + | Organization | [facility] [employer] (Historical as of | | | 01-30-19) [...] Team Providers + +------+ + | Care Payroll Associate Name | Role | Phone | [...] ml/min | | | | [place] [address] | | ([facility]); Essential | | | | [phone] | | hypertension, | | | | [...] + + + | [facility] | [address] | [place] [address] | [phone] | | LABORATORY | [address] | | [...] | + + + + + | [facility] | [address] | [place] [address] | [phone] | | LABORATORY | [address] | | [...] + + + | [facility] | [address] | [place] [address] | [phone] | | LABORATORY | [address] | | [...] + + + | [facility] | [address] | [place] [address] | [phone] | | LABORATORY | [address] | | [...] + + + | [facility] | [address] | [place] [address] | [phone] | | LABORATORY | [place]. | | [...]
--- OUTSIDE RECORDS SUMMARY | ~2019-03-25 | XMS | Encounter Summary ---
Demographics + + + | Address | [address] | | | [place] [address] | + + + | Home Phone | | + + + | Preferred Language | Unknown | + + + | Marital Status | | + + + | Druze Affiliation | Unknown | + + + | Race | Unknown | + + + | Ethnic Group | Unknown | + + + Author + + + | Author | [employer] (Historical as of | | | 01-30-19) | + + + | Organization | [facility] [employer] (Historical as of | | | 01-30-19) [...] Team Providers + +------+ + | Care Electrician Sound Name | Role | Phone | + [...] | | | | | [place] [address] | | | | | | [phone] | | | +--------+ + + + [...]
--- OUTSIDE RECORDS SUMMARY | ~2019-03-25 | XMS | Encounter Summary ---
Demographics + + + | Address | [address] | | | [place] [address] | + + + | Home Phone | | + + + | Preferred Language | Unknown | + + + | Marital Status | | + + + | Voodoo Affiliation | Unknown | + + + | Race | Unknown | + + + | Ethnic Group | Unknown | + + + Author + + + | Author | [employer] (Historical as of | | | 01-30-19) | + + + | Organization | [facility] [employer] (Historical as of | | | 01-30-19) [...] Providers + +------+ + | Care Director Of Placement Name | Role | Phone | + +------+ + | Jamse Houston MD | PCP | | + [...] ml/min | | | | [place] [address] | [place] [address] | ([facility]) (Primary Dx); | | | | [phone] | [phone] | Essential | | | | | [...] Problem List Diagnosis Coronary artery disease involving levelock coronary artery of levelock heart without angina pectoris Past myocardial infarction Dyslipidemia Anemia Type 2 diabetes mellitus with stage 3 chronic kidney disease, with long-term current us e of insulin ([facility]) Hypertension with goal blood pressure less than 140/80 Essential hypertension, benign Hyperuricemia Obesity S/P partial colectomy Lymphoma ([facility]) Anxiety disorder GERD (gastroesophageal reflux disease) Coronary artery disease involving levelock coronary artery of levelock heart CKD (chronic kidney disease) stage 3, GFR 30-59 ml/min ([facility]) Hyperlipidemia LDL goal <100 History of [...] 06/22/2011 LABIRON 9.2 04/20/2012 LABPROT 80.2 01/14/2019 [id number] 25 (A) 01/07/2018 Assessment: Mr. Dave is [...] blood pressure in the appropriate manner at [facility] e. he is to call us if [...] RFP, Magnesium, CBC, uric acid, Urine total rksoxiv-pi-hiruozmly e ratio. Hypertension: he will bring me [...] questions or concerns. Truly yours, Guilherme Shaffer BLOWING WEASAND [facility] Nephrologyin this encounter Plan of Treatment Not on fileas of this encounter Visit Diagnoses + + | Diagnosis | + + | CKD (chronic kidney disease) stage 3, GFR 30-59 ml/min ([facility]) - Primary | + + | Chronic kidney disease, Stage III (moderate) | + + | Essential hypertension, benign | + + | Hypertension with goal blood pressure less than 140/80 | + +
--- OUTSIDE RECORDS SUMMARY | ~2019-03-25 | XMS | Encounter Summary ---
Demographics + + + | Address | [address] | | | [place] [address] | + + + | Home Phone | | + + + | Preferred Language | Unknown | + + + | Marital Status | | + + + | Quaker Affiliation | Unknown | + + + | Race | Unknown | + + + | Ethnic Group | Unknown | + + + Author + + + | Author | [facility] | | | and [place] | + + + | Organization | [facility] | | | [...] Providers + +------+ + | Care Customer Counter Representative Name | Role | Phone | + +------+ + | James Houston | PCP | | | MD | | | + +------+ + Encounter Details +--------+ + + + + | Date | Type | Department | Care Team | Description | +--------+ + + + + | 01/29/ | Orders Only | [facility] | Milena Beltran | Hyperlipidemia; | | 2019 | | CARDIOLOGY [place] | [address] | Essential (primary) | | | | [address] | [address] [place] [address] | hypertension; Type 2 | | | | [address] | [place] [address] | diabetes mellitus | | | | [place] | [phone] | with diabetic | | | | [address] | | chronic kidney | | | | [phone] | | disease (HCC) | +--------+ + [...]
--- OUTSIDE RECORDS SUMMARY | ~2019-03-25 | XMS | Encounter Summary ---
Demographics + + + | Address | [address] | | | [place] [address] | + + + | Home Phone | | + + + | Preferred Language | Unknown | + + + | Marital Status | | + + + | Christian Affiliation | Unknown | + + + | Race | Unknown | + + + | Ethnic Group | Unknown | + + + Author + + + | Author | [facility] | | | and [place] | + + + | Organization | [facility] | | | and [...] Team Providers + +------+ + | Care Sampling Expert Name | Role | Phone | + +------+ + | James Houston | PCP | | | MD | | | + +------+ + Encounter Details +--------+ + + + + | Date | Type | Department | Care Team | Description | +--------+ + + + + | 01/25/ | Orders Only | [facility] | Sherri Barraza | | | 2018 | | CARDIOLOGY KP | [address] | | | | | [address] | [address] [facility] | | | | | [place], [place] | [place], [place] | | | | | [address] | [address] | | | | | [phone] | | | +--------+ + + + [...]
--- OUTSIDE RECORDS SUMMARY | ~2019-03-25 | XMS | Encounter Summary ---
Demographics + + + | Address | [address] | | | [place] [address] | + + + | Home Phone | | + + + | Preferred Language | Unknown | + + + | Marital Status | | + + + | Confucianism Affiliation | Unknown | + + + | Race | Unknown | + + + | Ethnic Group | Unknown | + + + Author + + + | Author | [facility] (Historical as of | | | 01-30-19) | + + + | Organization | [facility] (Historical as of | | | 01-30-19) [...] Team Providers + +------+ + | Care Cloth Picker Name | Role | Phone | + [...] [place] | | | | | | [address] | | | | | | [phone] | | | +--------+ + + + [...]
--- OUTSIDE RECORDS SUMMARY | ~2019-03-25 | XMS | Clinical Summary ---
Demographics + + + | Address | [address] | | | [place] [address] | + + + | Home Phone | | + + + | Preferred Language | Unknown | + + + | Marital Status | | + + + | Yazidism Affiliation | Unknown | + + + | Race | Unknown | + + + | Ethnic Group | Unknown | + + + Author + + + | Author | [facility] | | | and [place] | + + + | Organization | [facility] | | | and [...] Team Providers + +------+ + | Care Insurance Claim Representative Name | Role | Phone | [...] + + | Coronary artery disease involving [place] coronary artery of | 09/15/2013 | | [place] heart | | + + + | [...] + + | Coronary artery disease involving [place] coronary artery of | 06/20/19 | | | [place] heart without angina pectoris | 12 | [...] | | | 2018 | | | BUTTER MELTER | | +--------+ + + + + [...] | | | LAB | | | FINNISH | | | | | + + [...] +--------+ +---------+--------+ | MEDICARE | MEDICA | [id number] | 06/16/19 | [phone] | | Medica | | | RE | | 06-Pre | 5 | | re | | | PART A | | sent | | | | | | AND B | | | | | | + +--------+ +--------+ +---------+--------+ | [employer] | MODA | [id number] | | [phone] | | Medica | [...] Person | Self | [birth year] | [address] | | | al/Fam | | 1941 | [phone] | [address] [place], | | | ge | | | [address] ([place]) | [place] [address] | + +--------+ +--------+ + + Advance Directives Patient has advance care planning documents on file. For more information, please contact:[facility] [place] [address]
--- OUTSIDE RECORDS SUMMARY | ~2019-03-25 | XMS | Encounter Summary ---
Demographics + + + | Address | [address] | | | [place] [address] | + + + | Home Phone | | + + + | Preferred Language | Unknown | + + + | Marital Status | | + + + | Sabianism Affiliation | Unknown | + + + | Race | Unknown | + + + | Ethnic Group | Unknown | + + + Author + + + | Author | [email or web address] (Historical as of | | | 01-30-19) | + + + | Organization | [email or web address] (Historical as of | | | 01-30-19) [...] Team Providers + +------+ + | Care Instructional Support Specialist Name | Role | Phone | + [...] [place] | | | | | | [address] | | | | | | [phone] | | | +--------+--------+ + + + [...]
--- OUTSIDE RECORDS SUMMARY | ~2019-03-25 | XMS | Encounter Summary ---
Demographics + + + | Address | [address] | | | [place] [address] | + + + | Home Phone | | + + + | Preferred Language | Unknown | + + + | Marital Status | | + + + | Samaritan Affiliation | Unknown | + + + | Race | Unknown | + + + | Ethnic Group | Unknown | + + + Author + + + | Author | [facility] | | | and [place] | + + + | Organization | 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
--- OUTSIDE RECORDS SUMMARY | ~2019-03-25 | XMS | Encounter Summary ---
Demographics + + + | Address | [address] | | | [place] [address] | + + + | Home Phone | | + + + | Preferred Language | Unknown | + + + | Marital Status | | + + + | Islam Affiliation | Unknown | + + + | Race | Unknown | + + + | Ethnic Group | Unknown | + + + Author + + + | Author | [facility] | | | and [place] | + + + | Organization | [facility] | | | [...] Team Providers + +------+ + | Care Bulk Loader Name | Role | Phone | + +------+ + PCP | Unavailable | + +------+ + Encounter Details +--------+ + + + + | Date | Type | Department | Care Team | Description | +--------+ + + + + | 01/14/ | Orders Only | [facility] | Guilherme Shaffer, | | | 2018 | | NEPHROLOGY [place]OUR[place] | PHYSIOLOGY TEACHER [address] | | | | | [address] [place] | [address] | | | | | [address] [facility] [place] | [place] [address] | | | | | [address] | [phone] | | | | | [phone] | | | +--------+ + + + [...] | | | LAB | | | TUNISIAN | | | | | + + [...]
--- OUTSIDE RECORDS SUMMARY | ~2019-03-25 | XMS | Encounter Summary ---
Demographics + + + | Address | [address] | | | [place] [address] | + + + | Home Phone | | + + + | Preferred Language | Unknown | + + + | Marital Status | | + + + | Mandaen Affiliation | Unknown | + + + | Race | Unknown | + + + | Ethnic Group | Unknown | + + + Author + + + | Author | [facility] | | | and [place] | + + + | Organization | [facility] | | | [...] Team Providers + +------+ + | Care Limousine Driver Name | Role | Phone | + +------+ + PCP | Unavailable | + +------+ + Encounter Details +--------+ + + + + | Date | Type | Department | Care Team | Description | +--------+ + + + + | 01/14/ | Orders Only | [facility] | Guilherme Shaffer, | | | 2018 | | NEPHROLOGY [place]OUR[place]AN | GLASS INSERTER [address] | | | | | [address] [place] | [address] | | | | | [address] [facility] [place] | [place] [address] | | | | | [address] | [phone] | | | | | [phone] | | | +--------+ + + + [...]
--- OUTSIDE RECORDS SUMMARY | ~2019-03-25 | XMS | Encounter Summary ---
Demographics + + + | Address | [address] | | | [place] [address] | + + + | Home Phone | | + + + | Preferred Language | Unknown | + + + | Marital Status | | + + + | Orthodox Affiliation | Unknown | + + + | Race | Unknown | + + + | Ethnic Group | Unknown | + + + Author + + + | Author | [facility] (Historical as of | | | 01-30-19) | + + + | Organization | [facility] (Historical as of | | | 01-30-19) [...] Team Providers + +------+ + | Care Skip Hoist Operator Name | Role | Phone | [...] [address] | | | | | | [place] [address] | | | | | | [phone] | | | +--------+ + + + [...]
--- OUTSIDE RECORDS SUMMARY | ~2019-03-25 | XMS | Clinical Summary ---
Demographics + + + | Address | [address] | | | [place] [address] | + + + | Home Phone | | + + + | Preferred Language | Unknown | + + + | Marital Status | | + + + | Episcopal Affiliation | Unknown | + + + | Race | Unknown | + + + | Ethnic Group | Unknown | + + + Author + + + | Author | [facility] (Historical as of | | | 01-30-19) | + + + | Organization | [facility] (Historical as of | | | 01-30-19) [...] Team Providers + +------+ + | Care Desk Pen Set Assembler Name | Role | Phone | + [...] + + | Coronary artery disease involving [place] coronary artery of | 09/15/2013 | | [place] heart | | + + + + [...] kidney disease) stage 3, GFR 30-59 ml/min ([facility]) | 09/15/2013 | + + [...] + + | Coronary artery disease involving [place] coronary artery of | 06/20/2011 | | [place] heart without angina pectoris | | + [...] DM2, managed by Amina Lacey, | | SQL REPORT ANALYST. | + + Resolved Problems + + [...] | | 2019 | Visit | | SQL REPORT ANALYST | disease) stage 3, | | | | | | GFR 30-59 ml/min | | | | | | ([facility]) (Primary Dx); | | | [...] ml/min | | | | | | ([facility]); Essential | | | | | | hypertension, | | | | | | benign; | | | | | | Hyperuricemia | +--------+ + + + + | 01/08/ | Documentati | | Magda Turner | Labs Only (Collected | 2018 | on Only | | CHEMIST INTERN | 12/25/18) | +--------+ + + + [...] + + + | [facility] | [address] | [place] [address] | [phone] | | LABORATORY | [address]vd[address] | | [...] + + + | [facility] | [address] | [place] [address] | [phone] | | LABORATORY | Blvd. | | [...] + + + | [facility] | [address] | [place] [address] | [phone] | | LABORATORY | Blvd. | | | + + + + + Magnesium (01/14/2019 1:55 PM) + +-------+ + + | Component | Value | Ref Range | Performed At | + +-------+ + + | MAGNESIUM | 1.8 | 1.7 - 2.5 mg/dL | [facility] | | | | | LABORATORY | + +-------+ + + + + | Specimen | + + | Blood | + + + + + + + | Performing | Address | City/State/Zipcode | Phone Number | | Organization | | | | + + + + + | [facility] | [address] | [place] [address] | [phone] | | LABORATORY | Blvd. | | [...] | + + + + + | [facility] | [address] | [place] [address] | [phone] | | LABORATORY | Blvd. | | [...] +------+-------+ + | MEDICARE | MEDICA | [id number] | | | [address] | | | RE | | | | [place] [address] | | | IP-OP | | | | | + +--------+ +------+-------+ + | MEDICAID | [place] | [id number] | | | [address] | | | N | | | | [place], [place] | | | [place] | | | | [address] | | | CABIN SERVICE AGENT | | | | | + +--------+ [...] | Self | [birth year] | Home: | [address] | | | al/[place] | | 1941 | [phone] [address] [place], | | | ge | | | [address] | [place] [address] | + +--------+ +--------+ + +
--- OUTSIDE RECORDS SUMMARY | ~2019-03-25 | XMS | Encounter Summary ---
Demographics + + + | Address | [address] | | | [place] [address] | + + + | Home Phone | | + + + | Preferred Language | Unknown | + + + | Marital Status | | + + + | Restorationism Affiliation | Unknown | + + + | Race | Unknown | + + + | Ethnic Group | Unknown | + + + Author + + + | Author | [employer] [facility] (Historical as of | | | 01-30-19) | + + + | Organization | [facility] (Historical as of | | | 01-30-19) [...] Team Providers + +------+ + | Care Radiologic Technician Name | Role | Phone | [...] | | | | | [place] [address] | | | | | | [phone] | | | +--------+ + + + [...]
[~2019-03-25 11:37] MED LIST changes: +CINNAMON500 MG PO; +FENOFIBRATE54 MG PO; +HUMULIN R500 UNIT/2 SUB-Q; +LOMOTIL TABLET1 EACH PO; +MAGNESIUM250 M1 PO; +NITROGLYCERIN0.4 MG SL; +PROMETHAZINE HC25 M1 PO; +VITAMIN D31000 UNI1 PO
[2019-06-28] MEDS ORDERED: ALLOPURINOL100 MG PO (08:35)
[2019-06-28] MEDS ORDERED: BACTRIM DS TAB1 EACH PO (08:36)
[2019-06-28] MEDS ORDERED: MAGNESIUM400 M1 PO (08:39)
[2019-06-28] MEDS ORDERED: TORSEMIDE10 MG PO (08:39)
== END 2019-03-25 15:05 | disposition home or self-care (01) ==
LOC: ED 11:37
DX: E11.649 Type 2 diabetes mellitus with hypoglycemia without coma (principal); I10 Essential (primary) hypertension; I25.2 Old myocardial infarction; Z88.8 Allergy status to other drugs, medicaments and biological substances; Z79.899 Other long term (current) drug therapy; Z85.038 Personal history of other malignant neoplasm of large intestine; Z79.4 Long term (current) use of insulin
CPT/HCPCS: 71045; 80053; 81001; 83880; 84484; 85025; 85379; 99283-25

== ENCOUNTER 2019-03-26 11:52 | Emergency (ER) | payer MEDICARE, OTHER ==
[~2019-03-26] VITALS: Ht 182.9 cm; Wt 115.1 kg
--- OUTSIDE RECORDS SUMMARY | ~2019-03-26 | XMS | Clinical Summary ---
Demographics + + + | Address | [address] | | | [place] [address] | + + + | Home Phone | | + + + | Preferred Language | Unknown | + + + | Marital Status | | + + + | Hinduism Affiliation | Unknown | + + + | Race | Unknown | + + + | Ethnic Group | Unknown | + + + Author + + + | Author | [facility] (Historical as of | | | 01-30-19) | + + + | Organization | [facility] (Historical as of | | | 01-30-19) | + + + | Address | Unknown | + + + | Phone | Unavailable | + + + Support + + +---------+ + | Name | Relationship | Address | Phone | + + +---------+ + | Hmamad Llamas | ECON | Unknown | | + + +---------+ + | Paco Llamas | ECON | Unknown | | + + +---------+ + | Gopal Llamas | ECON | Unknown | | + + +---------+ + Care Team Providers + +------+ + | Care Director Funeral Name | Role | Phone | + +------+ + | James Houston MD | PP | | + +------+ + Allergies + + + + + + | Active Allergy | Reactions | Severity | Noted | Comments | | | | | Date | | + + + + + + | Amlodipine | Other (See Comments) | Medium | 03/12/20 | Breast tenderness | | | | | 13 | | + + + + + + | Isosorbide Nitrate | Other (See Comments) | Medium | 04/17/20 | Breast | | | | | 16 | enlargement, eyes | | | | | | crossed, syncopal | | | | | | episodes | + + + + + + | Statins | Other (See Comments) | Medium | 06/20/19 | " messes with my | | | | | 12 | liver" | + + + + + + Current Medications + + +--------+---------+------+------+-------+ | Prescription | Sig. | Disp. | Refills | Star | End | Statu | | | | | | t | Date | s | | | | | | Date | | | + + +--------+---------+------+------+-------+ | citalopram | Take 40 mg by mouth | | | | | Activ | | (CELEXA) 40 MG | daily. | | | | | e | | tablet | | | | | | | + + +--------+---------+------+------+-------+ | Linagliptin | Take 5 mg by mouth | | | | | Activ | | (TRADJENTA) 5 MG | nightly. | | | | | e | | TABS | | | | | | | + + +--------+---------+------+------+-------+ | hydrALAZINE | Take 25 mg by mouth | | | | | Activ | | (APRESOLINE) 25 MG | 2 (two) times daily. | | | | | e | | tablet | | | | | | | + + +--------+---------+------+------+-------+ | dexlansoprazole | Take 30 mg by mouth | | | | | Activ | | (DEXILANT) 30 MG | every evening. | | | | | e | | capsule | | | | | | | + + +--------+---------+------+------+-------+ | CINNAMON PO | Take 2 tablets by | | | | | Activ | | | mouth daily. | | | | | e | + + +--------+---------+------+------+-------+ | Cholecalciferol | Take 5,000 Units by | | | 06/17 | | Activ | | (VITAMIN D) 2000 | mouth daily. | | | 01/02 | | e | | UNITS tablet | | | | 17 | | | + + +--------+---------+------+------+-------+ | HUMULIN R U-500 | 95 units am, 65 noon | | 0 | 01/1 | | Activ | | KWIKPEN 500 UNIT/ML | , 95 units pm, | | | 8/20 | | e | | pen | varies with blood | | | 18 | | | | injectionIndications | sugar | | | | | | | : Type 2 Diabetes | | | | | | | | Mellitus | | | | | | | + + +--------+---------+------+------+-------+ | allopurinol | Take 1 tablet by | 90 | 3 | 07/3 | | Activ | | (ZYLOPRIM) 100 MG | mouth daily. | tablet | | 0/20 | | e | | tablet | | | | 18 | | | + + +--------+---------+------+------+-------+ | carvedilol (COREG) | take 1 tablet by | 180 | 3 | 05/2 | | Activ | | 25 MG tablet | mouth twice a day | tablet | | 0/20 | | e | | | with meals | | | 19 | | | + + +--------+---------+------+------+-------+ | losartan (COZAAR) | Take 1 tablet by | 90 | 3 | 06/1 | | Activ | | 25 MG tablet | mouth nightly. | tablet | | 0/20 | | e | | | | | | 19 | | | + + +--------+---------+------+------+-------+ | Magnesium 250 MG | Take 250 mg by mouth | | | | | Activ | | TABS tablet | daily. | | | | | e | + + +--------+---------+------+------+-------+ | clopidogrel | Take 1 tablet by | 90 | 3 | 06/1 | | Activ | | (PLAVIX) 75 MG | mouth daily. | tablet | | 0/20 | | e | | tablet | | | | 19 | | | + + +--------+---------+------+------+-------+ | fenofibrate 54 MG | Take 1 tablet by | 90 | 3 | 06/1 | 06/0 | Activ | | tablet | mouth daily. | tablet | | 0/20 | 9/20 | e | | | | | | 19 | 20 | | + + +--------+---------+------+------+-------+ | torsemide | Take 1 tablet by | 90 | 3 | 06/1 | | Activ | | (DEMADEX) 10 MG | mouth daily. | tablet | | 0/20 | | e | | tablet | | | | 19 | | | + + +--------+---------+------+------+-------+ | nitroGLYCERIN | Place 1 tablet under | 25 | 3 | 06/1 | | Activ | | (NITROSTAT) 0.4 MG | the tongue every 5 | tablet | | 0/20 | | e | | SL tablet | (five) minutes as | | | 19 | | | | | needed for Chest | | | | | | | | pain. | | | | | | + + +--------+---------+------+------+-------+ | colestipol | Take 2 tablets by | 360 | 0 | 08/1 | | Activ | | (COLESTID) 1 g | mouth 2 (two) times | tablet | | 2/20 | | e | | tabletIndications: | daily. | | | 19 | | | | Hyperlipidemia LDL | | | | | | | | goal <100 | | | | | | | + + +--------+---------+------+------+-------+ Active Problems + + + | Problem | Noted Date | + + + | Statin intolerance | 05/25/2018 | + + + | Hyperlipidemia LDL goal <100 | 04/21/2017 | + + + | History of PTCA | 04/21/2017 | + + + | Coronary artery disease involving [place] coronary artery of | 09/15/2013 | | [place] heart | | + + + + + | Last Assessment & Plan: 3V-CAD, Hx PCI/stent, LVEF 65-70%. | | 75yo WM, continues to be modestly active, denying any | | chest discomfort, shortness of breath, palpitations, or | | lightheadedness. He did not tolerate the Imdur, apparently this | | caused rest tenderness. The Imdur was discontinued, and he did | | not have any worsening of his symptoms. Recent labs reviewed, | | his renal function appears to be stable. He is statin | | intolerant, taking a resin binder at this time. Tolerating | | medications. No changes in therapy. Will continue to follow him | | clinically.Hx CABG: noHx PCI/stent: 2004, LAD (3.5*12mm Taxus), | | Ramus (POBA), LCx (2.5*16mm Taxus), OM (2.75*20mm Taxus). | | 11/30/2007, RCA (3.5*32, 3.0*18mm Cypher stents). | | Hx Pacemaker/ICD: noLast Cath, 11/30/2007: left main OK, LAD stent | | OK but 40% lesion after stent, D1 "jailed", ramus occluded, LCx | | stent to OM OK, but LCx occluded after stent, RCA stent occluded, | | LVEF 60%. The RCA is restented.Last Echo, 06/21/2011: LVEF | | 65-70%, mild LAE, trace TR.Last stress test, 07/18/2015: Lexiscan, | | fixed latero-basal defect, no ischemia, TID: 1.29, LVEF 65%.ECG, | | 06/26/2015: sinus rhythm, PAC, RBBB, low voltage. | + + + + + | CKD (chronic kidney disease) stage 3, GFR 30-59 ml/min ([facility]) | 09/15/2013 | + + + + + | Last Assessment & Plan: CKD, Stage 3, followed by | Christin Curry.Lab, 03/12/2016: K: 3.6, BUN/Cr: 19/1.3 (GFR 53), glu: 276, | | M.7 WBC: 8.6, H/H: 12.6/39.4 (MCV | | 76), plt: 239 | + + + + + | Essential hypertension, benign | 01/31/2012 | + + + + + | Last Assessment & Plan: Hypertension, reasonably controlled, | | continue current meds at current dose (carvedilol, doxazosin, | | hydralazine, losartan, torsemide). | + + + + + | Hyperuricemia | 01/31/2012 | + + + | Obesity | 01/31/2012 | + + + | S/P partial colectomy | 01/31/2012 | + + + + + | Overview: For colon cancer in 1985. | + + + + + | Lymphoma (HCC) | 01/31/2012 | + + + + + | Overview: S/p resection in 2009 | + + + + + | Anxiety disorder | 01/31/2012 | + + + | GERD (gastroesophageal reflux disease) | 01/31/2012 | + + + | Hypertension with goal blood pressure less than 140/80 | 06/24/2011 | + + + | Coronary artery disease involving [place] coronary artery of | 06/20/2011 | | [place] heart without angina pectoris | | + + + | Past myocardial infarction | 06/20/2011 | + + + | Dyslipidemia | 06/20/2011 | + + + + + | Last Assessment & Plan: Hyperlipidemia, continue current meds | | at current dose (colestipol). | + + + + + | Anemia | 06/20/2011 | + + + | Type 2 diabetes mellitus with stage 3 chronic kidney disease, | 06/20/2011 | | with long-term current use of insulin (HCC) | | + + + + + | Last Assessment & Plan: DM2, managed by Amina Lacey, | | [facility]. | + + Resolved Problems + + + + | Problem | Noted | Resolved | | | Date | Date | + + + + | Edema of lower extremity | 01/31/20 | | | | 12 | 8 | + + + + | Hypophosphatemia | 06/24/19 | | | | 12 | 2 | + + + + | Hypomagnesemia | 06/22/19 | | | | 12 | 2 | + + + + | Acidosis | 06/21/19 | | | | 12 | 2 | + + + + | Oliguria | 06/21/19 | | | | 12 | 2 | + + + + | Hyperphosphatemia | 06/21/19 | | | | 12 | 2 | + + + + | MELISSA (acute kidney injury) | 06/20/19 | | | | 12 | 8 | + + + + | Hyperkalemia | 06/20/19 | | | | 12 | 2 | + + + + | Nausea with vomiting | 06/20/19 | | | | 12 | 2 | + + + + | Dehydration | 06/20/19 | | | | 12 | 2 | + + + + | Leukocytosis | 06/20/19 | | | | 12 | 2 | + + + + | Acidosis | 06/20/19 | | | | 12 | 2 | + + + + Encounters +--------+ + + + + | Date | Type | Specialty | Care Team | Description | +--------+ + + + + | 01/25/ | Refill | | Mora, | Medication Refill | | 2019 | | | [facility] | | +--------+ + + + + | 01/25/ | Refill | | Milena Beltran | Medication Refill | | 2019 | | | BRENDON Briggs | | +--------+ + + + + | 01/15/ | Office | | Guilherme Shaffer, | CKD (chronic kidney | | 2019 | Visit | | [facility] | disease) stage 3, | | | | | | GFR 30-59 ml/min | | | | | | ([facility]) (Primary Dx); | | | | | | Essential | | | | | | hypertension, | | | | | | benign; Hypertension | | | | | | with goal blood | | | | | | pressure less than | | | | | | 140/80 | +--------+ + + + + | 01/15/ | Documentati | | Bassem | Labs Only (01/14/19) | | 2018 | on Only | | SHERRELL Heard | | +--------+ + + + + | 01/15/ | Orders Only | | [facility] | CKD (chronic kidney | | 2018 | | | [facility]LL Heard | disease) stage 3, | | | | | | GFR 30-59 ml/min | | | | | | ([facility]); Essential | | | | | | hypertension, | | | | | | benign; | | | | | | Hyperuricemia | +--------+ + + + + | 01/08/ | Documentati | | Magda Turner | Labs Only (Collected | 2018 | on Only | | [employer] TREATMENT OPERATOR | 12/25/18) | +--------+ + + + + | 01/07/ | Telephone | | Bolliger, | Other (appt/labs | | 2018 | | | JAK Rice | reminder) | +--------+ + + + + | 12/29/ | Documentati | | Marquez Cuellar MA | Labs Only | | 2018 | on Only | | | | +--------+ + + + + from Last 3 Months Immunizations + + + + | Name | Dates Previously Given | Next Due | + + + + | INFLUENZA, PF | 05/26/2018 | | | TRIVALENT HIGH DOSE | | | | 65 YRS OR > | | | + + + + | Influenza 4y or | 07/07/2017 | | | >,Quad derived from | | | | Tiss-cult (MDV) | | | + + + + | Influenza Split | 06/21/2011 | | + + + + | Influenza, Trivalent | 03/25/2013, 04/30/2010, 04/24/2006, | | | W/Preservative | 04/11/2005, 04/05/2003 | | + + + + | Pneumococcal | 04/24/2015 | | | Conjugate 13-valent | | | + + + + | Pneumococcal | 12/22/2017, 11/15/2010, 05/01/2005 | | | Polysaccharide | | | | 23-valent | | | + + + + | Tdap | 12/11/2015, 11/25/2005 | | + + + + | Zoster (Live) | 06/25/2012 | | + + + + Family History + + +------+ + | Medical History | Relation | Name | Comments | + + +------+ + | Cancer | Mother | | | + + +------+ + | Hypertension | Mother | | | + + +------+ + + +------+ + + | Relation | Name | Status | Comments | + +------+ + + | Father | | | Mesothelioma | | | | (Age | | | | | 84) | | + +------+ + + | Mother | | | HTN | | | | (Age | | | | | 97) | | + +------+ + + Social History + + + [...] on file | | + + + Last Filed Vital Signs + + + + | Vital Sign | Reading | Time Taken | + + + + | Blood Pressure | 102/50 | 01/15/2019 9:46 AM PDT | + + + + | Pulse | 66 | 01/15/2019 9:46 AM PDT | + + + + | Temperature | 36.5 C (97.7 F) | 01/12/2018 9:40 AM PDT | + + + + | Respiratory Rate | 20 | 05/25/2018 1:35 PM PST | + + + + | Oxygen Saturation | 96% | 11/23/2018 9:21 AM PDT | + + + + | Inhaled Oxygen | - | - | | Concentration | | | + + + + | Weight | 127.2 kg (280 lb 6.4 | 01/15/2019 9:46 AM PDT | | | oz) | | + + + + | Height | 180.3 cm (5' 11") | 01/15/2019 9:46 AM PDT | + + + + | Body Mass Index | 39.11 | 01/15/2019 9:46 AM PDT | + + + + Plan of Treatment + + + + + | Health Maintenance | Due Date | Last Done | Comments | + + + + + | Diabetic Eye Exam | | | | | | 1 | | | + + + + + | Diabetic Foot Exam | | | | | | 1 | | | + + + + + | Vaccine: Zoster (2 | | 06/25/2012 | | | of 3) | 3 | | | + + + + + | Hemoglobin A1c | | 2015, 09/21/2013, | | | | 6 | 06/24/2011 | | + + + + + | Vaccine: Influenza | | 05/26/2018, 07/07/2017, | | | (#1) | 9 | 03/25/2013, Additional history | | | | | exists | | + + + + + | Vaccine: | | 12/11/2015, 11/25/2005 | | | Dtap/Tdap/Td (3 - | 6 | | | | Td) | | | | + + + + + | Vaccine: | Completed | 12/22/2017, 04/24/2015, | | | Pneumococcal 65+ | | 11/15/2010, Additional history | | | High/Highest Risk | | exists | | + + + + + Procedures + +--------+ + + + | Procedure Name | Priori | Date/Time | Associated Diagnosis | Comments | | | ty | | | | + +--------+ + + + | URIC ACID | Routin | 01/14/2019 | CKD (chronic | Results for this | | | e | 1:55 PM | kidney disease) | procedure are in the | | | | PDT | stage 3, GFR 30-59 | results section. | | | | | ml/min (HCC) | | | | | | Essential | | | | | | hypertension, benign | | | | | | Hyperuricemia | | + +--------+ + + + | PROTEIN / CREATININE | Routin | 01/14/2019 | CKD (chronic | Results for this | | RATIO, URINE | e | 1:55 PM | kidney disease) | procedure are in the | | | | PDT | stage 3, GFR 30-59 | results section. | | | | | ml/min (HCC) | | | | | | Essential | | | | | | hypertension, benign | | | | | | Hyperuricemia | | + +--------+ + + + | RENAL FUNCTION PANEL | Routin | 01/14/2019 | CKD (chronic | Results for this | | | e | 1:55 PM | kidney disease) | procedure are in the | | | | PDT | stage 3, GFR 30-59 | results section. | | | | | ml/min (HCC) | | | | | | Essential | | | | | | hypertension, benign | | | | | | Hyperuricemia | | + +--------+ + + + | MAGNESIUM | Routin | 01/14/2019 | CKD (chronic | Results for this | | | e | 1:55 PM | kidney disease) | procedure are in the | | | | PDT | stage 3, GFR 30-59 | results section. | | | | | ml/min (HCC) | | | | | | Essential | | | | | | hypertension, benign | | | | | | Hyperuricemia | | + +--------+ + + + | CBC W/AUTO DIFF | Routin | 01/14/2019 | CKD (chronic | Results for this | | (REFLEX TO MANUAL) | e | 1:55 PM | kidney disease) | procedure are in the | | | | PDT | stage 3, GFR 30-59 | results section. | | | | | ml/min (HCC) | | | | | | Essential | | | | | | hypertension, benign | | | | | | Hyperuricemia | | + +--------+ + + + from Last 3 Months Results Protein / creatinine ratio, urine (01/14/2019 1:55 PM) + +-------+ + + | Component | Value | Ref Range | Performed At | + +-------+ + + | UR | 80.2 | 0 - 150 | [facility] | | PROTEIN/CREATININE | | | LABORATORY | + +-------+ + + + + | Specimen | + + | Urine | + + + + + + + | Performing | Address | City/State/Zipcode | Phone Number | | Organization | | | | + + + + + | [facility] | [address] | [place] [address] | [phone] | | LABORATORY | [address] | | | + + + + + CBC W/Auto Diff (Reflex to Manual) (01/14/2019 1:55 PM) + + + + + | Component | Value | Ref Range | Performed At | + + + + + | WBC | 7.1 | 4.5 - 11.0 10^3/mL | [facility] | | | | | LABORATORY | + + + + + | RBC | 4.88 | 4.3 - 5.7 10^6/ L | [facility] | | | | | LABORATORY | + + + + + | HGB | 13.0 (A) | 13.5 - 18.0 g/dL | [facility] | | | | | LABORATORY | + + + + + | HCT | 39.4 (A) | 41 - 50 % | [facility] | | | | | LABORATORY | + + + + + | MCV | 80.9 (A) | 81 - 99 fL | [facility] | | | | | LABORATORY | + + + + + | MCH | 27 | 27 - 33 pg | [facility] | | | | | LABORATORY | + + + + + | MCHC | 33 | 30 - 36 g/dL | [facility] | | | | | LABORATORY | + + + + + | PLT | 221 | 140 - 440 K/ L | [facility] | | | | | LABORATORY | + + + + + | RDW SD | 14.6 | 10.5 - 15.0 % | [facility] | | | | | LABORATORY | + + + + + | MPV | | fL | [facility] | | | | | LABORATORY | + + + + + | DIFF TYPE | | | [facility] | | | | | LABORATORY | + + + + + | NEUTROPHILS | 61.9 | 39 - 80 % | [facility] | | | | | LABORATORY | + + + + + | LYMPHOCYTES | 26.5 | 24 - 44 % | [facility] | | | | | LABORATORY | + + + + + | MONOCYTES | 5.6 | 0 - 12 % | [facility] | | | | | LABORATORY | + + + + + | EOSINOPHILS | 5.1 | 0 - 6 % | [facility] | | | | | LABORATORY | + + + + + | BASOPHILS | 0.9 | 0 - 2 % | [facility] | | | | | LABORATORY | + + + + + | NEUTROPHILS ABS | | / L | [facility] | | | | | LABORATORY | + + + + + | LYMPHOCYTES ABS | | / L | [facility] | | | | | LABORATORY | + + + + + | MONOCYTES ABS | | / L | [facility] | | | | | LABORATORY | + + + + + | EOSINOPHILS ABS | | / L | [facility] | | | | | LABORATORY | + + + + + | BASOPHILS ABS | | / L | [facility] | | | | | LABORATORY | + + + + + + + | Specimen | + + | Blood | + + + + + + + | Performing | Address | City/State/Zipcode | Phone Number | | Organization | | | | + + + + + | [facility] | [address] | [place] [address] | [phone] | | LABORATORY | [address] | | | + + + + + Uric acid (01/14/2019 1:55 PM) + +-------+ + + | Component | Value | Ref Range | Performed At | + +-------+ + + | URIC ACID | 6.8 | 4.4 - 7.6 | [facility] | | | | | LABORATORY | + +-------+ + + + + | Specimen | + + | Blood | + + + + + + + | Performing | Address | City/State/Zipcode | Phone Number | | Organization | | | | + + + + + | [facility] | [address] | [place] [address] | [phone] | | LABORATORY | [address] | | | + + + + + Magnesium (01/14/2019 1:55 PM) + +-------+ + + | Component | Value | Ref Range | Performed At | + +-------+ + + | MAGNESIUM | 1.8 | 1.7 - 2.5 mg/dL | [facility] | | | | | LABORATORY | + +-------+ + + + + | Specimen | + + | Blood | + + + + + + + | Performing | Address | City/State/Zipcode | Phone Number | | Organization | | | | + + + + + | [facility] | [address] | [place] [address] | [phone] | | LABORATORY | [address] | | | + + + + + Renal function panel (01/14/2019 1:55 PM) + + + + + | Component | Value | Ref Range | Performed At | + + + + + | GLUCOSE | 407 (A) | 70 - 100 mg/dL | [facility] | | | | | LABORATORY | + + + + + | BUN | 32 (A) | 6 - 23 mg/dL | [facility] | | | | | LABORATORY | + + + + + | CREATININE | 1.72 (A) | 0.70 - 1.18 mg/dL | [facility] | | | | | LABORATORY | + + + + + | PHOSPHORUS | 2.6 | 2.5 - 5.0 mg/dL | [facility] | | | | | LABORATORY | + + + + + | Albumin | 4.4 | 3.5 - 5.0 | [facility] | | | | | LABORATORY | + + + + + | SODIUM | 135 | 132 - 143 mmol/L | [facility] | | | | | LABORATORY | + + + + + | POTASSIUM | 4.2 | 3.6 - 5.1 mmol/L | [facility] | | | | | LABORATORY | + + + + + | CHLORIDE | 99 | 95 - 112 mmol/L | [facility] | | | | | LABORATORY | + + + + + | CO2 | 21 | 19 - 31 mmol/L | [facility] | | | | | LABORATORY | + + + + + | ANION GAP AGAP | 19.2 | 7 - 21 mmol/L | [facility] | | | | | LABORATORY | + + + + + | GFR MDRD Non Af Amer | | | [facility] | | | | | LABORATORY | + + + + + | Phosphorus,Inorganic | | | [facility] | | | | | LABORATORY | + + + + + | BUN/CREAT | 18.6 | 6.0 - 28.6 | [facility] | | | | | LABORATORY | + + + + + | CALCIUM | 10.0 | 8.5 - 10.3 mg/dL | [facility] | | | | | LABORATORY | + + + + + | EGFR | 39 (A) | 60 - 140 mg/dL | [facility] | | | | | LABORATORY | + + + + + + + | Specimen | + + | Blood | + + + + + + + | Performing | Address | City/State/Zipcode | Phone Number | | Organization | | | | + + + + + | [facility] | [address] | [place] [address] | [phone] | | LABORATORY | [address] | | | + + + + + from Last 3 Months Insurance + +--------+ +------+-------+ + | Payer | Benefi | Subscriber | Type | Phone | Address | | | t Plan | ID | | | | | | / | | | | | | | Group | | | | | + +--------+ +------+-------+ + | MEDICARE | MEDICA | [id number] | | | [address] | | | RE | | | | [place] [address] | | | IP-OP | | | | | + +--------+ +------+-------+ + | MEDICAID | [place] | [id number] | | | [address] | | | N | | | | [place], [place] | | | [place] | | | | [address] | | | [employer]ORY READER | | | | | + +--------+ +------+-------+ + + +--------+ +--------+ + + | Guarantor Name | Accoun | Relation to | Date | Phone | Billing Address | | | t Type | Patient | of | | | | | | | | | | + +--------+ +--------+ + + | JHONATAN LLAMAS | Person | Self [birth year] Home: | [address] | | | al/[place] | | 1941 | [phone] [address] [place], | | | ge | | | [address] | [place] [address] | + +--------+ +--------+ + +
--- OUTSIDE RECORDS SUMMARY | ~2019-03-26 | XMS | Encounter Summary ---
Demographics + + + | Address | [address] | | | [place] [address] | + + + | Home Phone | | + + + | Preferred Language | Unknown | + + + | Marital Status | | + + + | Uatsdin Affiliation | Unknown | + + + | Race | Unknown | + + + | Ethnic Group | Unknown | + + + Author + + + | Author | [facility] (Historical as of | | | 01-30-19) | + + + | Organization | [facility] (Historical as of | | | 01-30-19) [...] Team Providers + +------+ + | Care Traveling Engineer Name | Role | Phone | + +------+ + | James Houston MD | PCP | | + +------+ + Reason for Visit + + + | Reason | Comments | + + + | Labs Only | 01/14/19 | + + + Encounter Details +--------+ + + + + | Date | Type | Department | Care Team | Description | +--------+ + + + + | 01/15/ | Documentati | [facility] | Bassem, | Labs Only (01/14/19) | | 2019 | on Only | [address] | [place] [address] | | | | | [address] | | | | | | [place] [address] | | | | | | [phone] | | | +--------+ + + + + Social [...] on fileas of this encounter Visit Diagnoses Not on filein this encounter"
--- OUTSIDE RECORDS SUMMARY | ~2019-03-26 | XMS | Encounter Summary ---
Demographics + + + | Address | [address] | | | [place] [address] | + + + | Home Phone | | + + + | Preferred Language | Unknown | + + + | Marital Status | | + + + | Spiritism Affiliation | Unknown | + + + | Race | Unknown | + + + | Ethnic Group | Unknown | + + + Author + + + | Author | [facility] | | | and [place] | + + + | Organization | [facility] | | | and [place] | + + + | Address | Unknown | + + + | Phone | Unavailable | + + + Support + + +---------+ + | Name | Relationship | Address | Phone | + + +---------+ + | Hammad Llamas | JOLYNN | Unknown | | + + +---------+ + | Paco Llamas | ECON | Unknown | | + + +---------+ + Care Team Providers + +------+ + | Care Director Data Management Name | Role | Phone | + +------+ + | James Houston | PCP | | | MD | | | + +------+ + Encounter Details +--------+ + + + + | Date | Type | Department | Care Team | Description | +--------+ + + + + | 01/25/ | Orders Only | [facility] | Sherri Barraza | | | 2018 | | CARDIOLOGY [facility] | [address] | | | | | [address] | [address] [facility] [place] | | | | | [place], [place] | [place], [place] | | | | | [address] | [id number] | | | | | [phone] | | | +--------+ + + + + Social History + +-------+ +--------+------+ | Tobacco Use | Types | Packs/Day | Years | Date | | | | | Used | | + +-------+ +--------+------+ | Former Smoker | | 3 | | | + +-------+ +--------+------+ + + + | Sex Assigned at | Date Recorded | | | | + + + | Not on file | | + + + + + + + | Job Start Date | Occupation | Industry | + + + + | Not on file | Not on file | Not on file | + + + + + + + + | Travel History | Travel Start | Travel End | + + + + + + | No recent travel history available. | + + documented as of this encounter Plan of Treatment Not on filedocumented as of this encounter Visit Diagnoses Not on filedocumented in this encounter"
--- OUTSIDE RECORDS SUMMARY | ~2019-03-26 | XMS | Encounter Summary ---
Demographics + + + | Address | [address] | | | [place] [address] | + + + | Home Phone | | + + + | Preferred Language | Unknown | + + + | Marital Status | | + + + | Amish Affiliation | Unknown | + + + | Race | Unknown | + + + | Ethnic Group | Unknown | + + + Author + + + | Author | [employer] (Historical as of | | | 01-30-19) | + + + | Organization | [facility] [employer] (Historical as of | | | 01-30-19) [...] Team Providers + +------+ + | Care Warehouse Examiner Name | Role | Phone | + [...] ml/min | | | | [place] [address] | | ([facility]); Essential | | | | [phone] | | hypertension, | | | | [...] + + + | [facility] | [address] | [place] [address] | [phone] | | LABORATORY | [address] | | [...] | + + + + + | [facility] | [address] | [place] [address] | [phone] | | LABORATORY | [address]vd. | | [...] + + + | [facility] | [address] | [place] [address] | [phone] | | LABORATORY | [address]vd. | | [...] + + + | [facility] | [address] | [place] [address] | [phone] | | LABORATORY | [address]vd[address] | | [...] + + + | [facility] | [address] | [place] [address] | [phone] | | LABORATORY | [place]. | | [...]
--- OUTSIDE RECORDS SUMMARY | ~2019-03-26 | XMS | Encounter Summary ---
Demographics + + + | Address | [address] | | | [place] [address] | + + + | Home Phone | | + + + | Preferred Language | Unknown | + + + | Marital Status | | + + + | Pentecostal Affiliation | Unknown | + + + | Race | Unknown | + + + | Ethnic Group | Unknown | + + + Author + + + | Author | [employer] (Historical as of | | | 01-30-19) | + + + | Organization | [facility] [employer] (Historical as of | | | 01-30-19) [...] Team Providers + +------+ + | Care Latent Fingerprint Examiner Name | Role | Phone | [...] [place] | | | | | | [address] | | | | | | [phone] | | | +--------+--------+ + + + [...]
--- OUTSIDE RECORDS SUMMARY | ~2019-03-26 | XMS | Encounter Summary ---
Demographics + + + | Address | [address] | | | [place] [address] | + + + | Home Phone | | + + + | Preferred Language | Unknown | + + + | Marital Status | | + + + | Temple Affiliation | Unknown | + + + | Race | Unknown | + + + | Ethnic Group | Unknown | + + + Author + + + | Author | [facility] | | | and [place] | + + + | Organization | [facility] | | | [...] + +---------+ + | Paco Llamas | JOLYNN | Unknown | | + + +---------+ + Care Team Providers + +------+ + | Care Calendering Machine Operator Name | Role | Phone | + +------+ + | James Houston | PCP | | | MD | | | + +------+ + Encounter Details +--------+ + + + + | Date | Type | Department | Care Team | Description | +--------+ + + + + | 01/29/ | Orders Only | [facility] | Milena Beltran | Hyperlipidemia; | | 2019 | | [facility] | [address] | Essential (primary) | | | | [address] | [address] | hypertension; Type 2 | | | | [address] | [place] [address] | diabetes mellitus | | | | [place] | [phone] | with diabetic | | | | [address] | | chronic kidney | | | | [phone] | | disease (HCC) | +--------+ + + + + Social [...] as of this encounter Plan of Treatment + +--------+ + + | Name | Priori | Associated Diagnoses | Order Schedule | | | ty | | | + +--------+ + + | Comprehensive Metabolic Panel | Routin | Hyperlipidemia | Expected: | | | e | Essential (primary) | 11/23/2018, Expires: | | | | hypertension Type 2 | 11/24/2019 | | | | diabetes mellitus | | | | | with diabetic | | | | | chronic kidney | | | | | disease (HCC) | | + +--------+ + + | Lipid Panel | Routin | Hyperlipidemia | Expected: | | | e | | 11/23/2018, Expires: | | | | | 11/23/2019 | + +--------+ + + documented as of this encounter Visit Diagnoses + + | Diagnosis | + + | Hyperlipidemia Other and unspecified hyperlipidemia | + + | Essential (primary) hypertension Unspecified essential hypertension | + + | Type 2 diabetes mellitus with diabetic chronic kidney disease (HCC) Type II or | | unspecified type diabetes mellitus with renal manifestations, not stated as uncontrolled | + + documented in this encounter"
--- OUTSIDE RECORDS SUMMARY | ~2019-03-26 | XMS | Encounter Summary ---
Demographics + + + | Address | [address] | | | [place] [address] | + + + | Home Phone | | + + + | Preferred Language | Unknown | + + + | Marital Status | | + + + | Denominational Affiliation | Unknown | + + + | Race | Unknown | + + + | Ethnic Group | Unknown | + + + Author + + + | Author | [employer] (Historical as of | | | 01-30-19) | + + + | Organization | [facility] [employer] (Historical as of | | | 01-30-19) [...] Team Providers + +------+ + | Care Lead Burner Apprentice Name | Role | Phone | + [...] [address] | | | | | | [place] [address] | | | | | | [phone] | | | +--------+ + + + [...]
--- OUTSIDE RECORDS SUMMARY | ~2019-03-26 | XMS | Encounter Summary ---
Demographics + + + | Address | [address] | | | [place] [address] | + + + | Home Phone | | + + + | Preferred Language | Unknown | + + + | Marital Status | | + + + | Gnosticism Affiliation | Unknown | + + + | Race | Unknown | + + + | Ethnic Group | Unknown | + + + Author + + + | Author | [facility] (Historical as of | | | 01-30-19) | + + + | Organization | [facility] (Historical as of | | | 01-30-19) [...] Team Providers + +------+ + | Care General Distillery Worker Name | Role | Phone | + [...] [place] | | | | | | [address] | | | | | | [phone] | | | +--------+--------+ + + + [...]
--- OUTSIDE RECORDS SUMMARY | ~2019-03-26 | XMS | Encounter Summary ---
Demographics + + + | Address | [address] | | | [place] [address] | + + + | Home Phone | | + + + | Preferred Language | Unknown | + + + | Marital Status | | + + + | Jew Affiliation | Unknown | + + + | Race | Unknown | + + + | Ethnic Group | Unknown | + + + Author + + + | Author | [employer] (Historical as of | | | 01-30-19) | + + + | Organization | [facility] [employer] [facility] (Historical as of | | | 01-30-19) [...] Team Providers + +------+ + | Care Family Mediator Name | Role | Phone | + [...] [place] | | | | | | [address] | | | | | | [phone] | | | +--------+ + + + [...]
--- OUTSIDE RECORDS SUMMARY | ~2019-03-26 | XMS | Encounter Summary ---
Demographics + + + | Address | [address] | | | [place] [address] | + + + | Home Phone | | + + + | Preferred Language | Unknown | + + + | Marital Status | | + + + | Pentecostalism Affiliation | Unknown | + + + | Race | Unknown | + + + | Ethnic Group | Unknown | + + + Author + + + | Author | [employer] (Historical as of | | | 01-30-19) | + + + | Organization | [facility] [employer] (Historical as of | | | 01-30-19) | + + + | Address | Unknown | + + + | Phone | Unavailable | + + + Support + + +---------+ + | Name | Relationship | Address | Phone | + + +---------+ + | Hammad Dave | ECON | Unknown | | + + +---------+ + | Paco Dave | ECON | Unknown | | + + +---------+ + | Gopal Dave | ECON | Unknown | | + + +---------+ + Care Team Providers + +------+ + | Care Supervisor Kosher Dietary Service Name | Role | Phone | + +------+ + | James Houston MD | PCP | | + +------+ + Encounter Details +--------+---------+ + + + | Date | Type | Department | Care Team | Description | +--------+---------+ + + + | 01/15/ | Office | [facility] | Guilherme Shaffer, | CKD (chronic kidney | | 2019 | Visit | [address] | [place] | disease) stage 3, | | | | [address] | [address] | GFR 30-59 ml/min | | | | [place] [address] | [place] [address] | ([facility]) (Primary Dx); | | | | [phone] | [phone] | Essential | | | | | | hypertension, | | | | | | benign; Hypertension | | | | | | with goal blood | | | | | | pressure less than | | | | | | 140/80 | +--------+---------+ + + + Social History + + [...] + + + as of this encounter Last Filed Vital Signs + + + + | Vital Sign | Reading | Time Taken | + + + + | Blood Pressure | 102/50 | 01/15/2019 9:46 AM PDT | + + + + | Pulse | 66 | 01/15/2019 9:46 AM PDT | + + + + | Temperature | - | - | + + + + | Respiratory Rate | - | - | + + + + | Oxygen [...] AM PDT | + + + + in this encounter Instructions Patient Instructions - Guilherme Shaffer ARNP - 01/15/2019 9:40 AM PDTMedication Changes made at today's visit: None Next LAB WORK in about: 6 Months You do NOT need to fast for this lab work, keep hydrated. Next APPOINTMENT: in about 6 Months Please have lab work done 1 weeks prior to your appointment. Make sure you are well hydrated prior to going to the lab and are able to give a urine s ample. Call the office with any questions or concerns. Please bring all of your medications in the pharmacy bottles to every visit so a medicat ion review can be done. We recommend to measure your BP at least daily, twice daily if possible, record it and b ring record to every appointment with every healthcare provider you see. DO NOT TAKE any anti-inflammatory drugs such Ibuprofen, Diclofenac, Motrin, Advil, Shields xicam, naprosyn (Aleve), Celebrex, decongestants containing pseudoephedrine (such as some fo sisi of Sudafed or Actifed) or herbal supplements (because of lack of FDA approval) Call our office if you have blood pressure over 150/90 on more than one occasion, or low blood pressure that is concerning. If you experience diarrhea and /or vomiting for more than 24 hours with no relief please seek medical help immediately. The treatments that are recommended to slow the progression of Chronic Kidney Disease in clude blood sugar control, blood pressure control, healthy body weight (BMI less than 30 kg/ m2), avoid sedentary lifestyle, avoid smoking/ tobacco, avoid NSAIDs, worsening nausea, vomi ting, no or low appetite and/or frequent diarrhea and avoid IV contrast. Do not drink alcohol, drink water when thirsty. If you smoke, you must quit. Smoking worsens kidney disease. Avoid caffeinated beverages such as soda pop, coffee, espresso drinks, energy drinks. Make all healthcare providers aware of the presence of kidney disease and request to adj ust all medications according to level of kidney function and to avoid nephrotoxic medicatio ns if possible, including but not limited to antibiotics. Call us with any questions. Short term use of acetaminophen (Tylenol) for fever or pain is okay. If in doubt please call our office for verification. Avoid exposure to IV contrast agents (DYE) used in CT scans, MRI's, Fluoroscopy, or in h eart catheterization procedures unless necessary or for a life saving procedure. Low salt diet, less than 2gm daily. in this encounter Progress Notes Guilherme Shaffer ARNP - 01/15/2019 9:40 AM PDTFormatting of this note may be different f rom the original. Patient Active Problem List Diagnosis Coronary artery disease involving [place] coronary artery of [place] heart without angina pectoris Past myocardial infarction Dyslipidemia Anemia Type 2 diabetes mellitus with stage 3 chronic kidney disease, with long-term current us e of insulin ([facility]) Hypertension with goal blood pressure less than 140/80 Essential hypertension, benign Hyperuricemia Obesity S/P partial colectomy Lymphoma ([facility]) Anxiety disorder GERD (gastroesophageal reflux disease) Coronary artery disease involving [place] coronary artery of [place] heart CKD (chronic kidney disease) stage 3, GFR 30-59 ml/min ([facility]) Hyperlipidemia LDL goal <100 History of PTCA Statin intolerance Dear Dr. Houston : I saw Mr. Dave in the office today for f/u on Chronic Kidney Disease and associated com plications. As you are familiar with his case, I will not state his past history in detail. He has a history of prolonged exposure to NSAIDs, uses Aleve. Denies exposure to known neph rotoxins. he denies any recurrent nephrolithiasis or pyelonephritis. he tells me that he's h ad no history of urinary retention, gross hematuria or dysuria. he has no incontinence sympt oms. No symptoms of UTI. he has 1 or 2 nightly nocturia. No history of passing kidney ston es. he has no foamy urine either. his baseline Creatinine is around 1.4. He continues to take some aleve "now and then". He is aware of the renal implications of NS AIDs and renal function. he says that he feels 'good ' today. He reports he is not active, sits and watches TV most of the day, he denies any blurred vision tinnitus, headache, fever, chills, or cough. No n ausea, vomiting, abdominal pain, diarrhea, melena, or hematochezia. No chest pain, palpitation, loss of consciousness, orthopnea, paroxysmal nocturnal dyspnea. He has had BRIGGS on-off for the past few years; stress test in early 2015 done, he follows u p for that with the Cardiology team. He's had chronic leg edema that improved with the Torsemide. He drinks moslty diet soda, 2L per day, no water. His losartan was decreased to 25mg daily, down from 50mg in October 2017 by his cardiology team . Mid 2017 torsemide was decreased due to lower renal function, he was dry. He is on 10mg now . The following portions of the patient's history were reviewed and updated as appropriate: a llergies, current medications, past medical history, past social history, past surgical hist ory, family history and problem list. Results for orders placed during the hospital encounter of 06/20/11 Ultrasound renal Narrative STEVEN DAVE US KIDNEYS AND BLADDER 06/20/2011 8:33 PM HISTORY: 70 years. Male. Rule out obstructive uropathy. TECHNIQUE: Imaging performed using a 4-MHz curved array transducer. COMPARISON: None. FINDINGS: Right Kidney: 11.9 cm greatest longitudinal dimension. Normal echogenicity and cortical thickness. No solid or cystic mass is noted. No renal parenchymal or collecting system calculi are seen.. No hydronephrosis is seen. Left Kidney: 10.6 cm greatest longitudinal dimension. Normal echogenicity and cortical thickness. A small simple cyst is incidentally noted involving the lower pole of the left kidney measure 1.6 cm greatest dimension. No renal parenchymal or collecting system calculi are seen.. No hydronephrosis is seen. The urinary bladder was not evaluated due to nondistention from indwelling Saldana catheter. IMPRESSION: 1. Other than 1.6-cm left renal cyst, normal sonographic appearance of the kidneys. 2. Urinary bladder not evaluated due to nondistention, as above. 07/18/2015 stress test showed: 1. Abnormal study. Mild fixed perfusion defect involving the lateral basal segment of the l eft ventricle, along with TID. Suggesting multivessel coronary disease. LVEF 65 % 2. Stress ECG: Negative for Lexiscan-induced ischemia. 3. Sinus arrhythmias detected. 4. No Lexiscan induced chest pain. 5. No previous test for comparison. As in History of Present Illness & in Assessment. All the twelve systems were reviewed and were otherwise negative. Current Outpatient Prescriptions Medication Sig Dispense Refill allopurinol (ZYLOPRIM) 100 MG tablet Take 1 tablet by mouth daily. 90 tablet 3 carvedilol (COREG) 25 MG tablet take 1 tablet by mouth twice a day with meals 180 table t 3 Cholecalciferol (VITAMIN D) 2000 UNITS tablet Take 5,000 Units by mouth daily. CINNAMON PO Take 2 tablets by mouth daily. citalopram (CELEXA) 40 MG tablet Take 40 mg by mouth daily. clopidogrel (PLAVIX) 75 MG tablet Take 1 tablet by mouth daily. 90 tablet 3 colestipol (COLESTID) 1 g tablet Take 2 tablets by mouth 2 (two) times daily. 360 table t 3 dexlansoprazole (DEXILANT) 30 MG capsule Take 30 mg by mouth every evening. fenofibrate 54 MG tablet Take 1 tablet by mouth daily. 90 tablet 3 HUMULIN R U-500 KWIKPEN 500 UNIT/ML pen injection 95 units am, 65 noon , 95 units pm, varies with blood sugar 0 hydrALAZINE (APRESOLINE) 25 MG tablet Take 25 mg by mouth 2 (two) times daily. Linagliptin (TRADJENTA) 5 MG TABS Take 5 mg by mouth nightly. losartan (COZAAR) 25 MG tablet Take 1 tablet by mouth nightly. 90 tablet 3 Magnesium 250 MG TABS tablet Take 250 mg by mouth daily. torsemide (DEMADEX) 10 MG tablet Take 1 tablet by mouth daily. 90 tablet 3 nitroGLYCERIN (NITROSTAT) 0.[address] 1 tablet under the tongue every 5 (fiv e) minutes as needed for Chest pain. 25 tablet 3 No current facility-administered medications for this visit. Physical Exam: BP 102/50 (BP Location: Left upper arm, Patient Position: Sitting) | Pulse 66 | Ht 1.803 m (5' 11") | Wt 127.2 kg (280 lb 6.4 oz) | BMI 39.11 kg/m General appearance: Pleasant, obese, not in acute distress. Neck: Supple without tracheal deviation or jugular venous distension. Head and ENT: Head is atraumatic. The oropharynx is without erythema or thrush. Eyes: Anicteric. The extraocular muscle movements are normal. Lungs: Clear to auscultation bilaterally. There are no wheezes. Heart: Regular rate and rhythm without any rub, gallop. no murmur. Abdominal exam: Soft, obese and nontender with normal bowel sounds. Musculoskeletal: No costovertebral angle tenderness bilaterally. Extremities: Warm to touch with no leg edema. There is no cyanosis. Skin: There are no rashes, petechiae, or ecchymosis. Neurological: Awake, alert, and oriented to time, place, and person. Normal gross motor po wer. There is no asterixis. Psychiatric: The patient s behavior is normal. Judgment and thought content are normal. Lab Results Component Value Date BUN 32 (A) 01/14/2019 CREATININE 1.72 (A) 01/14/2019 EGFR 39 (A) 01/14/2019 NA 135 01/14/2019 K 4.2 01/14/2019 CL 99 01/14/2019 CO2 21 01/14/2019 CA 10.0 01/14/2019 PHOS 2.6 01/14/2019 MG 1.8 01/14/2019 ALB 4.4 01/14/2019 HGB 13.0 (A) 01/14/2019 URICACID 6.8 01/14/2019 WBC 7.1 01/14/2019 HCT 39.4 (A) 01/14/2019 FERRITIN 355 (H) 06/22/2011 LABIRON 9.2 04/20/2012 LABPROT 80.2 01/14/2019 [id number] 25 (A) 01/07/2018 Assessment: Mr. Dave is a 71 y.o. male patient with stage III CKD on a background of longstanding d iabetes & hypertension. 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 He had a severe hemodynamic MELISSA back in 06/2011 & was in e ICU & needed 2 acute HD sessions before significant renal function improvement ensued. RENAL FUNCTION: Relatively stable for him BLOOD PRESSURE: Reports controlled BLOOD SUGAR: Reports better control now ELECTROLYTES: Acceptable ANEMIA: Mild VITAMIN D: Corrected with replacement PARATHYROID HORMONE: Stable URIC ACID: Improved with treatment PROTEINURIA: Minimal URINALYSIS: No UTI or Hematuria VOLUME STATUS: Euvolumic Discussions/Recommendations: I discussed today with Mr.. Dave the meaning of his CKD and the interaction of that wit h his hypertension and diabetes. I stressed the importance of keeping his BP and BG controlled and avoiding getting dehydrat ed if we are to have a chance at helping preserve his renal function. he showed good unders tanding. I gave him instructions on how to chart his blood pressure in the appropriate manner at [facility]. he is to call us if they fall outside of the optimal provided range. he will bring his sphygmomanometer for validation once a year. he will strictly abide by a low sodium diet and will avoid all kinds of NSAIDs for analgesi a. No med changes today. He will continue to f/u with cardiology and endocrinology as directed. Follow up labs include: RFP, Magnesium, CBC, uric acid, Urine total cvduwkw-ka-gitexizib e ratio. Hypertension: he will bring me back his home BP charts in 2-3 week. At that time, I will decide whether any changes to his vasoactive regimen are warranted. I advised him to exercise regularly but safely & to try to lose weight methodically; He voiced good understanding. He will continue to F/U with your office regularly. He will have labs done before he comes back in [address] Houston for the opportunity to follow up with this patient and be part of the care team. Please do not hesitate to call me at any time with questions or concerns. Truly yours, Guilherme Shaffer [facility] encounter Plan of Treatment Not on fileas of this encounter Visit Diagnoses + + | Diagnosis | + + | CKD (chronic kidney disease) stage 3, GFR 30-59 ml/min ([facility]) - Primary | + + | Chronic kidney disease, Stage III (moderate) | + + | Essential hypertension, benign | + + | Hypertension with goal blood pressure less than 140/80 | + +
--- OUTSIDE RECORDS SUMMARY | ~2019-03-26 | XMS | Encounter Summary ---
Demographics + + + | Address | [address] | | | [place] [address] | + + + | Home Phone | | + + + | Preferred Language | Unknown | + + + | Marital Status | | + + + | Rastafarian Affiliation | Unknown | + + + | Race | Unknown | + + + | Ethnic Group | Unknown | + + + Author + + + | Author | [employer] (Historical as of | | | 01-30-19) | + + + | Organization | [facility] [employer] (Historical as of | | | 01-30-19) [...] Team Providers + +------+ + | Care Rn Access Name | Role | Phone | + [...] [address] | | | | | | [place] [address] | | | | | | [phone] | | | +--------+ + + + [...]
--- OUTSIDE RECORDS SUMMARY | ~2019-03-26 | XMS | Encounter Summary ---
Demographics + + + | Address | [address] | | | [place] [address] | + + + | Home Phone | | + + + | Preferred Language | Unknown | + + + | Marital Status | | + + + | Buddhist Affiliation | Unknown | + + + | Race | Unknown | + + + | Ethnic Group | Unknown | + + + Author + + + | Author | [facility] | | | and [place] | + + + | Organization | [facility] | | | [...] Team Providers + +------+ + | Care Customer Complaint Service Supervisor Name | Role | Phone | + +------+ + | James Houston | PCP | | | MD | | | + +------+ + Encounter Details +--------+ + + + + | Date | Type | Department | Care Team | Description | +--------+ + + + + | 01/29/ | Orders Only | [facility] | Milena Beltran | Hyperlipidemia; | | 2019 | | [facility] | [address] | Essential (primary) | | | | [address] | [address] | hypertension; Type 2 | | | | [address] | [place] [address] | diabetes mellitus | | | | [place] | [phone] | with diabetic | | | | [address] | | chronic kidney | | | | [phone] | | disease (HCC) | +--------+ + [...]
--- OUTSIDE RECORDS SUMMARY | ~2019-03-26 | XMS | Encounter Summary ---
Demographics + + + | Address | [address] | | | [place] [address] | + + + | Home Phone | | + + + | Preferred Language | Unknown | + + + | Marital Status | | + + + | Druze Affiliation | Unknown | + + + | Race | Unknown | + + + | Ethnic Group | Unknown | + + + Author + + + | Author | [employer] (Historical as of | | | 01-30-19) | + + + | Organization | [facility] [employer] (Historical as of | | | 01-30-19) [...] Team Providers + +------+ + | Care Assistant Professor Of Drama Name | Role | Phone | + [...] [place] | | | | | | [address] | | | | | | [phone] | | | +--------+ + + + [...]
--- OUTSIDE RECORDS SUMMARY | ~2019-03-26 | XMS | Encounter Summary ---
Demographics + + + | Address | [address] | | | [place] [address] | + + + | Home Phone | | + + + | Preferred Language | Unknown | + + + | Marital Status | | + + + | Sikhism Affiliation | Unknown | + + + | Race | Unknown | + + + | Ethnic Group | Unknown | + + + Author + + + | Author | [employer] (Historical as of | | | 01-30-19) | + + + | Organization | [facility] [employer] (Historical as of | | | 01-30-19) [...] Team Providers + +------+ + | Care Medication Assistant Name | Role | Phone | + [...] Scarlet Harris | | | | | [facility] [address] | [place] [address] | | | | | [place] [address] | [phone] | | | | | [phone] | | | +--------+--------+ + + + [...]
--- OUTSIDE RECORDS SUMMARY | ~2019-03-26 | XMS | Encounter Summary ---
Demographics + + + | Address | [address] | | | [place] [address] | + + + | Home Phone | | + + + | Preferred Language | Unknown | + + + | Marital Status | | + + + | Jainism Affiliation | Unknown | + + + | Race | Unknown | + + + | Ethnic Group | Unknown | + + + Author + + + | Author | [employer] (Historical as of | | | 01-30-19) | + + + | Organization | [facility] [employer] (Historical as of | | | 01-30-19) [...] Team Providers + +------+ + | Care Historiography Teacher Name | Role | Phone | + [...] | | | | | [place] [address] | | | | | | [phone] | | | +--------+ + + + [...]
--- OUTSIDE RECORDS SUMMARY | ~2019-03-26 | XMS | Encounter Summary ---
Demographics + + + | Address | [address] | | | [place] [address] | + + + | Home Phone | | + + + | Preferred Language | Unknown | + + + | Marital Status | | + + + | Temple Affiliation | Unknown | + + + | Race | Unknown | + + + | Ethnic Group | Unknown | + + + Author + + + | Author | [employer] (Historical as of | | | 01-30-19) | + + + | Organization | [facility] [employer] (Historical as of | | | [...] Team Providers + +------+ + | Care Proofing Machine Operator Name | Role | Phone [...] ml/min | | | | [place] [address] | [place] [address] | (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) Hypertension with goal blood pressure less than 140/80 Essential hypertension, benign Hyperuricemia Obesity S/P partial colectomy Lymphoma (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) Hyperlipidemia LDL goal <100 History [...] 06/22/2011 LABIRON 9.2 04/20/2012 LABPROT 80.2 01/14/2019 [id number] (A) 01/07/2018 Assessment: Mr. Dave is [...] blood pressure in the appropriate manner at [facility]. he is to call us if [...] RFP, Magnesium, CBC, uric acid, Urine total czsorno-fz-ldqymidqu e ratio. Hypertension: he will bring me [...] questions or concerns. Truly yours, Guilherme Shaffer SENSOR OPERATOR [facility] Clinic Nephrologyin this encounter Plan of Treatment Not on fileas of this encounter Visit Diagnoses + + | Diagnosis | + + | CKD (chronic kidney disease) stage 3, GFR 30-59 ml/min ([facility]) - Primary | + + | Chronic kidney disease, Stage III (moderate) | + + | Essential hypertension, benign | + + | Hypertension with goal blood pressure less than 140/80 | + +
--- OUTSIDE RECORDS SUMMARY | ~2019-03-26 | XMS | Clinical Summary ---
Demographics + + + | Address | [address] | | | [place] [address] | + + + | Home Phone | | + + + | Preferred Language | Unknown | + + + | Marital Status | | + + + | Presybeterian Affiliation | Unknown | + + + | Race | Unknown | + + + | Ethnic Group | Unknown | + + + Author + + + | Author | [facility] | | | and [place] | + + + | Organization | [facility] | | | [...] Team Providers + +------+ + | Care Replenishment Buyer Name | Role | Phone | + [...] + + | Coronary artery disease involving greenville coronary artery of | 09/15/2013 | | greenville heart | | + + + | [...] + + | Coronary artery disease involving greenville coronary artery of | 06/20/19 | | | greenville heart without angina pectoris | 12 | [...] | | | 2018 | | | REPLENISHMENT BUYER | | +--------+ + + + + [...] | | | LAB | | | BELARUSIAN | | | | | + + [...] +--------+ +---------+--------+ | MEDICARE | MEDICA | [id number] | 06/16/19 | [phone] | | Medica | | | RE | | 06-Pre | 5 | | re | | | PART A | | sent | | | | | | AND B | | | | | | + +--------+ +--------+ +---------+--------+ | [employer] | MODA | [id number] | | [phone] | | Medica | [...] Person | Self | [birth year] | [address] [facility] | | | al/Fam | | 1941 | [phone] | [address] [place], | | | ge | | | [address] ([place]) | [place] [address] | + +--------+ +--------+ + + Advance Directives Patient has advance care planning documents on file. For more information, please contact:[facility] [place] [address]
--- OUTSIDE RECORDS SUMMARY | ~2019-03-26 | XMS | Encounter Summary ---
Demographics + + + | Address | [address] | | | [place] [address] | + + + | Home Phone | | + + + | Preferred Language | Unknown | + + + | Marital Status | | + + + | Judaism Affiliation | Unknown | + + + | Race | Unknown | + + + | Ethnic Group | Unknown | + + + Author + + + | Author | [employer] (Historical as of | | | 01-30-19) | + + + | Organization | [facility] (Historical as of | | | 01-30-19) [...] Team Providers + +------+ + | Care Registered Pharmacy Technician Name | Role | Phone | [...] 2019 | | Angel[address] | [place] | disease) stage 3, | | | | [address] | | GFR 30-59 ml/min | | | | [place] [address] | | ([facility]); Essential | | | | [phone] | | hypertension, | | | | [...] + + + | [facility] | [address] | [place] [address] | [phone] | | LABORATORY | Blvd. | | [...] | + + + + + | [facility] | [address] | [place] [address] | [phone] | | LABORATORY | Blvd. | | [...] + + + | [facility] | [address] | [place] [address] | [phone] | | LABORATORY | Blvd. | | [...] + + + | [facility] | [address] | [place] [address] | [phone] | | LABORATORY | Blvd. | | [...] + + + | [facility] | [address] | [place] [address] | [phone] | | LABORATORY | [place]. | | [...]
--- OUTSIDE RECORDS SUMMARY | ~2019-03-26 | XMS | Clinical Summary ---
Demographics + + + | Address | [address] | | | [place] [address] | + + + | Home Phone | | + + + | Preferred Language | Unknown | + + + | Marital Status | | + + + | Latter-Day Affiliation | Unknown | + + + | Race | Unknown | + + + | Ethnic Group | Unknown | + + + Author + + + | Author | [employer] (Historical as of | | | 01-30-19) | + + + | Organization | [facility] [employer] (Historical as of | | | 01-30-19) [...] Team Providers + +------+ + | Care Chemist Name | Role | Phone | + [...] + + | Coronary artery disease involving assiniboine and gros ventre tribes coronary artery of | 09/15/2013 | | assiniboine and gros ventre tribes heart | | + + + + [...] stage 3, GFR 30-59 ml/min ([facility]) | 09/15/2013 | + + [...] + + | Coronary artery disease involving assiniboine and gros ventre tribes coronary artery of | 06/20/2011 | | assiniboine and gros ventre tribes heart without angina pectoris | | + [...] DM2, managed by Amina Lacey, | | SALICYLIC ACID BLENDER. | + + Resolved Problems + + [...] | | 2019 | Visit | | SALICYLIC ACID BLENDER | disease) stage 3, | | | | | | GFR 30-59 ml/min | | | | | | ([facility]) (Primary Dx); | | | [...] | | | | | ([facility]); Essential | | | | | | hypertension, | | | | | | benign; | | | | | | Hyperuricemia | +--------+ + + + + | 01/08/ | Documentati | | Magda Turner | Labs Only (Collected | 2018 | on Only | | MAINTAINABILITY ENGINEER | 12/25/18) | +--------+ + + + [...] + + + | [facility] | [address] | [place] [address] | [phone] | | LABORATORY | [address]vd. | | [...] + + + | [facility] | [address] | [place] [address] | [phone] | | LABORATORY | Blvd. | | [...] + + + | [facility] | [address] | [place] [address] | [phone] | | LABORATORY | Blvd. | | | + + + + + Magnesium (01/14/2019 1:55 PM) + +-------+ + + | Component | Value | Ref Range | Performed At | + +-------+ + + | MAGNESIUM | 1.8 | 1.7 - 2.5 mg/dL | [facility] | | | | | LABORATORY | + +-------+ + + + + | Specimen | + + | Blood | + + + + + + + | Performing | Address | City/State/Zipcode | Phone Number | | Organization | | | | + + + + + | [facility] | [address] | [place] [address] | [phone] | | LABORATORY | Blvd. | | [...] | + + + + + | [facility] | [address] | [place] [address] | [phone] | | LABORATORY | Blvd. | | [...] +------+-------+ + | MEDICARE | MEDICA | [id number] | | | [address] | | | RE | | | | [place] [address] | | | IP-OP | | | | | + +--------+ +------+-------+ + | MEDICAID | [facility]ER | [id number] | | | [address] | | | N | | | | [place], [place] | | | [place] | | | | [address] | | | ECHO VASCULAR TECHNOLOGIST | | | | | + +--------+ [...] | Self | [birth year] | Home: | [address] | | | al/[place] | | 1941 | [phone] [address] [place], | | | ge | | | [address] | [place] [address] | + +--------+ +--------+ + +
--- OUTSIDE RECORDS SUMMARY | ~2019-03-26 | XMS | Encounter Summary ---
Demographics + + + | Address | [address] | | | [place] [address] | + + + | Home Phone | | + + + | Preferred Language | Unknown | + + + | Marital Status | | + + + | Taoist Affiliation | Unknown | + + + | Race | Unknown | + + + | Ethnic Group | Unknown | + + + Author + + + | Author | [employer] (Historical as of | | | 01-30-19) | + + + | Organization | [facility] (Historical as of | | | 01-30-19) [...] Team Providers + +------+ + | Care Aircraft Shipping Checker Name | Role | Phone | + [...] [place] | | | | | | [address] | | | | | | [phone] | | | +--------+ + + + [...]
--- OUTSIDE RECORDS SUMMARY | ~2019-03-26 | XMS | Encounter Summary ---
Demographics + + + | Address | [address] | | | [place] [address] | + + + | Home Phone | | + + + | Preferred Language | Unknown | + + + | Marital Status | | + + + | Congregation Affiliation | Unknown | + + + | Race | Unknown | + + + | Ethnic Group | Unknown | + + + Author + + + | Author | [email or web address] (Historical as of | | | 01-30-19) | + + + | Organization | [facility] [email or web address] (Historical as of | | | 01-30-19) [...] Team Providers + +------+ + | Care Power Distribution Engineer Name | Role | Phone | [...] Scarlet Harris | | | | | [facility] [address] | [place] [address] | | | | | [place] [address] | [phone] | | | | | [phone] | | | +--------+--------+ + + + [...]
--- OUTSIDE RECORDS SUMMARY | ~2019-03-26 | XMS | Encounter Summary ---
Demographics + + + | Address | [address] | | | [place] [address] | + + + | Home Phone | | + + + | Preferred Language | Unknown | + + + | Marital Status | | + + + | Yarsanism Affiliation | Unknown | + + + | Race | Unknown | + + + | Ethnic Group | Unknown | + + + Author + + + | Author | [facility] | | | and [place] | + + + | Organization | [facility] | | | and [place] | + + + | Address | Unknown | + + + | Phone | Unavailable | + + + Support + + +---------+ + | Name | Relationship | Address | Phone | + + +---------+ + | Hammad | ECON | Unknown | | + + +---------+ + | Paco | ECON | Unknown | | + + +---------+ + Care Team Providers + +------+ + | Care Olericulture Professor Name | Role | Phone | + +------+ + PCP | Unavailable | + +------+ + Encounter Details +--------+ + + + + | Date | Type | Department | Care Team | Description | +--------+ + + + + | 01/14/ | Orders Only | [facility] | Guilherme Shaffer, | | | 2018 | | NEPHROLOGY JOURDAN | AUTO REPAIR SHOP MANAGER [address] | | | | | [address] | [address] | | | | | [address] [facility], [place] | [place] [address] | | | | | [address] | [phone] | | | | | [phone] | | | +--------+ + + + + Social History + +-------+ +--------+------+ | Tobacco Use | Types | Packs/Day | Years | Date | | | | | Used | | + +-------+ +--------+------+ | Never Assessed | | | | | + +-------+ +--------+------+ + [...] Not on filedocumented as of this encounter Procedures + +--------+ + [...] section. | + +--------+ + + + documented in this encounter Results Protein/Creatinine Ratio, Urine (01/14/2019 13:55 PDT) + [...] | | | + +---------+ + + External Lab: CBC (01/14/2019 13:55 PDT) + + + + [...] | | | LAB | | | THAI | | | | | + + [...] | | | + +---------+ + + documented in this encounter Visit Diagnoses Not on filedocumented in this encounter"
--- OUTSIDE RECORDS SUMMARY | ~2019-03-26 | XMS | Encounter Summary ---
Demographics + + + | Address | [address] | | | [place] [address] | + + + | Home Phone | | + + + | Preferred Language | Unknown | + + + | Marital Status | | + + + | Oriental Orthodox Affiliation | Unknown | + + [...] Team Providers + +------+ + | Care Apns Name | Role | Phone | + +------+ + PCP | Unavailable | + +------+ + Encounter Details +--------+ + + + + | Date | Type | Department | Care Team | Description | +--------+ + + + + | 01/14/ | Orders Only | [facility] | Guilherme Shaffer, | | | 2018 | | NEPHROLOGY JOURDAN | CHICK ROOM SUPERVISOR [address] | | | | | [address] [place] | [address] | | | | | [address] [facility] [place] | [place] [address] | | | | | [address] | [phone] | | | | | [phone] | | | +--------+ + + + [...] | | | LAB | | | [place] | | | | | + + [...]
--- OUTSIDE RECORDS SUMMARY | ~2019-03-26 | XMS | Encounter Summary ---
Demographics + + + | Address | [address] | | | [place] [address] | + + + | Home Phone | | + + + | Preferred Language | Unknown | + + + | Marital Status | | + + + | Amish Affiliation | Unknown | + + + | Race | Unknown | + + + | Ethnic Group | Unknown | + + + Author + + + | Author | [employer] (Historical as of | | | 01-30-19) | + + + | Organization | [facility] [employer] (Historical as of | | | [...] | + + +---------+ + | Gopal Llaams | ECON | Unknown | | + + +---------+ + Care Team Providers + +------+ + | Care Tennis Racket Repairer Name | Role | Phone | + [...] [place] | | | | | | [address] | | | | | | [phone] | | | +--------+ + + + [...]
--- OUTSIDE RECORDS SUMMARY | ~2019-03-26 | XMS | Clinical Summary ---
Demographics + + + | Address | [address] | | | [place] [address] | + + + | Home Phone | | + + + | Preferred Language | Unknown | + + + | Marital Status | | + + + | Anabaptist Affiliation | Unknown | + + + | Race | Unknown | + + + | Ethnic Group | Unknown | + + + Author + + + | Author | [facility] | | | and [place] | + + + | Organization | [facility] | | [...] Team Providers + +------+ + | Care Optometry Professor Name | Role | Phone | [...] + + | Coronary artery disease involving pala coronary artery of | 09/15/2013 | | pala heart | | + + + | [...] + + | Coronary artery disease involving pala coronary artery of | 06/20/19 | | | pala heart without angina pectoris | 12 | [...] | | | 2018 | | | CHIEF OPERATOR REFORMER | | +--------+ + + + + [...] | | | LAB | | | [place]OUTH [place] | | | | | + + [...] +--------+ +---------+--------+ | MEDICARE | MEDICA | [id number] | 06/16/19 | [phone] | | Medica | | | RE | | 06-Pre | 5 | | re | | | PART A | | sent | | | | | | AND B | | | | | | + +--------+ +--------+ +---------+--------+ | [employer] | MODA | [id number] | | [phone] | | Medica | [...] Person | Self | [birth year] | | [address] [address] | | | al/Fam | | 1941 | [phone] | [address] [place], | | | ge | | | [address] ([place]) | [place] [address] | + +--------+ +--------+ + + Advance Directives Patient has advance care planning documents on file. For more information, please contact:[facility] [place] [address]
--- OUTSIDE RECORDS SUMMARY | ~2019-03-26 | XMS | Encounter Summary ---
Demographics + + + | Address | [address] | | | [place] [address] | + + + | Home Phone | | + + + | Preferred Language | Unknown | + + + | Marital Status | | + + + | Yarsanism Affiliation | Unknown | + + + | Race | Unknown | + + + | Ethnic Group | Unknown | + + + Author + + + | Author | [facility] | | | and [place] | + + + | Organization | [facility] | | | [...] Team Providers + +------+ + | Care Final Expense Agent Name | Role | Phone | + +------+ + | James Houston | PCP | | | MD | | | + +------+ + Encounter Details +--------+ + + + + | Date | Type | Department | Care Team | Description | +--------+ + + + + | 01/25/ | Orders Only | [facility] | Sherri Barraza | | | 2018 | | CARDIOLOGY KP | [address] | | | | | [address] | [address] [facility] | | | | | [place], [place] | [place], [place] | | | | | [address] | [address] | | | | | [phone] | | | +--------+ + + + [...]
--- OUTSIDE RECORDS SUMMARY | 2019-03-26 11:54 | XMS ---
PreManage Notification: DEXTER DAVE Security Shift Foreman Events No recent Security Events currently on file CRITERIA MET - [facility] - 2 Visits in 30 Days CARE PROVIDERS SHANAE KOEHLER [facility] 08/17/2018-Current PHONE: Unknown Devaughn Simmons Current PHONE: Unknown Other Current PHONE: Unknown Florencia has no Care Guidelines for this patient. Yris VISIT COUNT (12 MO.) [address] [facility] [address] [facility] TOTAL 6 NOTE: Visits indicate total known visits. ED/UCC VISIT TRACKING (12 MO.) 03/26/2019 11:53 [facility] [place] TYPE: Emergency COMPLAINT: - DIABETIC ISSUE 03/25/2019 11:38 [facility] [place] TYPE: Emergency COMPLAINT: - FALL, ALTERED LOC 01/29/2019 00:23 [facility] [place] TYPE: Emergency COMPLAINT: - DIARRHEA DIAGNOSES: - Allergy status to other drugs, medicaments and biological substances status - Presence of coronary angioplasty implant and graft - Personal history of other malignant neoplasm of large intestine - Nicotine dependence, unspecified, uncomplicated - Diarrhea, unspecified - Essential (primary) hypertension - Type 2 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 - intermediate designer (current) use of insulin - Other termination clerk (current) drug therapy - Old myocardial infarction 01/24/2019 13:13 [facility] [place] TYPE: Emergency COMPLAINT: - DIARRHEA DIAGNOSES: - Type 2 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 - Diarrhea, unspecified - Other intermediate (current) drug therapy - Presence of coronary angioplasty implant and graft - intermediate designer (current) use of insulin - Essential (primary) hypertension - Personal history of nicotine dependence - Allergy status to other drugs, medicaments and biological substances status - Old myocardial infarction 08/14/2018 12:56 [facility] [place] TYPE: Emergency COMPLAINT: - RECHECK DIAGNOSES: - Allergy status to analgesic agent status - Essential (primary) hypertension - Personal history of nicotine dependence - Panic disorder [episodic paroxysmal anxiety] - Other termination clerk (current) drug therapy - Old myocardial infarction - Type 2 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 - Presence of coronary angioplasty implant and graft - retirement (current) use of insulin - Encounter for change or removal of nonsurgical wound dressing 08/13/2018 02:51 [facility] [place] TYPE: Emergency COMPLAINT: - NOSE BLEED DIAGNOSES: - Allergy status to other drugs, medicaments and biological substances status - Type 2 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 - Epistaxis - Personal history of nicotine dependence - intermediate designer (current) use of insulin - Essential (primary) hypertension - Panic disorder [episodic paroxysmal anxiety] - Other termination clerk (current) drug therapy - Old myocardial infarction INPATIENT VISIT TRACKING (12 MO.) No inpatient visits to display in this time frame [email or web address]
[2019-06-28] MEDS ORDERED: ALLOPURINOL100 MG PO (08:35)
[2019-06-28] MEDS ORDERED: BACTRIM DS TAB1 EACH PO (08:36)
[2019-06-28] MEDS ORDERED: MAGNESIUM400 M1 PO (08:39)
[2019-06-28] MEDS ORDERED: TORSEMIDE10 MG PO (08:39)
== END 2019-03-26 17:08 | disposition home or self-care (01) ==
LOC: ED 11:52
DX: E11.649 Type 2 diabetes mellitus with hypoglycemia without coma (principal); I10 Essential (primary) hypertension; I25.2 Old myocardial infarction; Z85.038 Personal history of other malignant neoplasm of large intestine; Z88.8 Allergy status to other drugs, medicaments and biological substances; Z79.899 Other long term (current) drug therapy; Z79.4 Long term (current) use of insulin
CPT/HCPCS: 80053; 84484; 85025; 96360; 96361; 99283-25; J7040

== ENCOUNTER 2019-06-30 07:55 | Day surgery (SDC) | payer MEDICARE, OTHER ==
[~2019-06-30] VITALS: Ht 182.9 cm; Wt 115.7 kg
[~2019-06-30 07:55] MED LIST changes: +BACTRIM DS TAB1 EACH PO; +MAGNESIUM400 M1 PO; +TORSEMIDE10 MG PO
--- NOTE | 2019-06-30 10:35 | NUR ---
06/30/19 1035 Brigette,Ava 1015 PT ARRIVED TO PACU ON 6L VIA MASK, PT REACTIVE TO TACTILE STIMULI RESP EVEN AND UNLABORED. 1017 PT WAKES AND REPORTS NO PAIN OR NAUSEA. VSS. PT TALKING TO RN O2 REMOVED. CBG DECREASED FROM PRE-OP AND PATIENT FINANCIAL SPECIALIST AND MD AWARE. 1030 ICE TO SURGICAL SITE. 1034 PT O2 SAT DECREASED TO 89% AND PT ENCOURAGED TO DEEP BREATHE AND COUGH. O2 INCREASED TO MID 90S.
[2019-06-30] MEDS ORDERED: NORCO 5-325 TA1 EACH PO (11:02)
--- NOTE | 2019-06-30 11:31 | NUR ---
1045: PATIENT BACK IN DAY SURGERY ROOM FROM PACU. DENIES PAIN. VS CHECKED. IV SITE WNL. SCDs ON. PATIENT GIVEN DIET SODA PER REQUEST. CALL LIGHT WITHIN REACH. 1115: ENCURAGED BY EARLY CHILDHOOD COORDINATOR TO DISCHARGE PATIENT WHEN PATIENT AWAKE AND READY SO PATIENT'S BLOOD SUGAR DOES NOT DROP LOW ENOUGH TO CAUSE SIGNS/SYMPTOMS FOR PATIENT. PATIENT AWAKE AND WANTS TO GO HOME. TOLERATED SODA. IV DC'D WNL. TIP INTACT. DRESSING APPLIED. PATIENT ASSISTED OOB AND TO WALK AROUND ROOM. GAIT STEADY. PATIENT GOT DRESSED INDEPENDENTLY. DISCHARGE INSTRUCTIONS GIVEN TO PATIENT. 1122: SON ARRIVED TO TAKE PATIENT HOME. PATIENT DISCHARGED TO HOME WITH SON VIA WHEELCHAIR.
--- NOTE | 2019-07-01 05:28 | OR ---
[facility] [address] [place], [place] [address] Signed DATE OF OPERATION: 06/30/2019 SURGEON: Maru Calzada MD PREOPERATIVE DIAGNOSIS: A 12 mm ulcerated skin lesion/cyst, right temporal scalp. POSTOPERATIVE DIAGNOSIS: A 12 mm ulcerated skin lesion/cyst, right temporal scalp. PROCEDURE: Excision of right temporal scalp lesion/cyst. ESTIMATED BLOOD LOSS: None. INDICATIONS: Jhonatan is a 78-year-old, obese, uncontrolled diabetic, who I have taken care of in the past. He talked about being dizzy and he had fallen down. He ended up in the emergency room. He said he never hit his head. However, he felt there was a small pimple on his right parietal/temporal scalp area. He picked that area and it became infected. He ended up going to the Urgent Care [facility]. He went through two rounds of cephalexin. He had been to his primary care provider. Overall, he thought it was not getting better. He thought it was at least 2 cm in diameter. He said now it is down to about a centimeter. He had been asked to see me with respect to the above as a local general surgeon. It was still draining a bit and still erythematous around the area, although, we felt more than likely the infection had passed. Nevertheless, we gave him some Bactrim for another week and had him follow up. It continued to improve and the surrounding erythema was much less. It was no longer draining and I could see that the wound edges were starting to contract just a bit. We pressed on that area several times and never produced any pus or sebum. I explained to Godfrey that we probably should excise that area full thickness to make sure it is not an ulcerated skin cancer versus an ulcerated Pilar cyst. I reviewed with him the nature of the curvilinear elliptical incision required to remove that lesion. It will be four times longer than it is wide, roughly 4-5 cm in length. I explained to Godfrey we would have to cut back his hair. He laughed and said his hair already fell out from the infection. He understands there is risk to that surgery including, but not limited to bleeding, infection, scarring, change in contour of the skin as well as wound dehiscence and possible need for additional surgeries based on postoperative followup and/or pathology results. He had expressed understanding and wished to proceed. Electronically Signed By: MARU CALZADA MD 07/01/19 0528 PATIENT NAME: JHONATAN DAVE OPERATIVE REPORT DATE OF : 40 REPORT #: [id number] PHYSICIAN: MARU CALZADA MD PCP: SHANAE KOEHLER MD REPORT IS CONFIDENTIAL AND NOT TO BE RELEASED WITHOUT AUTHORIZATION [facility] [address] [place], [place] [address] Signed PROCEDURE NOTE: I met with Godfrey in our preop area. We both easily identified the lesion on his right islam/parietal scalp. It was marked appropriately. I can see that is continued to improve some since I have seen him in the office. Very minimal erythema in the surrounding skin at this point and again, the wound edges were starting to contract. After this, Godfrey was taken in the operating room and placed in the supine position under general LMA anesthesia. He was given preoperative antibiotics along with subcutaneous heparin. SCDs were utilized. We measured out the lesion at 12 mm and therefore made our elliptical curvilinear incision about 5 cm in length. We marked that out appropriately. Local anesthetic was injected in and underneath the lesion. We developed the incision with a #15 blade knife and carried that full-thickness with the help of a cautery set on 25. We left the galea in place of course. We did see an obvious cyst underneath the skin. The lesion was appropriately marked and then passed off the field. We developed our skin flaps anterior and posteriorly. We then brought the dermis together with interrupted 3-0 Monocryl sutures. In the center, I used one 5-0 Monocryl suture to bring the last piece of skin together right in the center. The skin edges were then reapproximated with a running 5-0 fast absorbing plain gut suture. Dry gauze and tape were then applied. Godfrey was awakened from his anesthesia, extubated in the OR, and taken to recovery room in stable condition. Maru Calzada MD ALB/MODL /[id number] cc: MD Maru Suarez MD Copies: SHANAE KOEHLER MD, ANDREW L MD ~ Electronically Signed By: MARU CALZADA MD 07/01/19 0528 PATIENT NAME: JHONATAN DAVE OPERATIVE REPORT DATE OF : 40 REPORT #: [id number] PHYSICIAN: MARU CALZADA MD PCP: SHANAE KOEHLER MD REPORT IS CONFIDENTIAL AND NOT TO BE RELEASED WITHOUT AUTHORIZATION
--- NOTE | 2019-07-01 15:56 | PATH ---
[facility] [address] [place], [place] [address] Signed SPECIMEN(S): A RIGHT PARIETAL, TEMPORAL SCALP SPECIMEN SOURCE: A. RIGHT PARIETAL, TEMPORAL SCALP CLINICAL HISTORY: Right parietal scalp lesion. FINAL PATHOLOGIC DIAGNOSIS: Right temporal skin lesion/cyst, excision: - Granulomatous dermatitis. - Squamous keratosis with focal epithelial ulceration in associated abundant acute inflammation. - See comment. COMMENT: The intradermal granulomatous dermatitis shows focal free hair shafts. The differential includes ruptured cyst, folliculitis, and dissecting cellulitis. Correlation with the clinical presentation and culture results is recommended. Atypical features are not encountered. JVR:cml:C2NR MICROSCOPIC EXAMINATION: Histologic sections of all submitted blocks are examined by light microscopy. These findings, together with the gross examination, support the pathologic diagnosis. GROSS DESCRIPTION: The specimen, labeled "PEREZ, A and right temporal skin lesion/cyst on the requisition," is received in formalin and consists of a 4.6 x 1.8 x 0.8 cm orellana wrinkled ellipse of skin and subcutaneous tissue. A long stitch at one tip designates lateral, a short stitch designates posterior and a double stitch designates anterior. The margins are inked as follows: Posterior half blue, anterior half black. The skin surface demonstrates a central 1.1 x 0.9 cm crusted contreras-red lesion that is located 0.4 cm from the posterior margin and 0.5 cm from the anterior margin. The cut surfaces are mottled contreras-yellow. The specimen is serially sectioned perpendicular to the lateral medial axis and entirely submitted sequentially in cassettes A1-A4. SS (under the direct supervision of a pathologist) PATIENT NAME: DEXTER DAVE PATHOLOGY DATE OF : 40 REPORT #: [id number] PHYSICIAN: JAYLIN GONZALES PCP: SHANAE KOEHLER MD REPORT IS CONFIDENTIAL AND NOT TO BE RELEASED WITHOUT AUTHORIZATION [facility] [address] [place], [place] [address] Signed The Gross Description was prepared using a voice recognition system. The report was reviewed for accuracy; however, sound-alike word errors, addition and/or deletions may occur. If there is any question about this report, please contact Client Services. PERFORMING LABORATORY: The technical component was performed by [employer], [address] [place] [address] (Account Group Supervisor: Renay Bhatti MD; CLIA# [id number]). Professional interpretation was performed by [employer], [place] [address] (Account Group Supervisor: Bakari Forrester M.D.). Diagnostician: Bakari Forrester MD Pathologist Electronically Signed 07/01/2019 Copies: ~ PATIENT NAME: DEXTER DAVE PATHOLOGY DATE OF : 40 REPORT #: [id number] PHYSICIAN: [facility] PATH[facility] PCP: SHANAE KOEHLER MD REPORT IS CONFIDENTIAL AND NOT TO BE RELEASED WITHOUT AUTHORIZATION
== END 2019-06-30 11:22 | disposition home or self-care (01) ==
LOC: DS 07:55
PROVIDERS: Colon & Rectal Surgery
PROC: 0HB0XZZ Excision of Scalp Skin, External Approach (ICD-10-PCS; principal; 2019-06-30 09:00)
DX: L30.8 Other specified dermatitis (principal); L57.0 Actinic keratosis; L98.499 Non-pressure chronic ulcer of skin of other sites with unspecified severity; Z79.899 Other long term (current) drug therapy; Z79.02 Long term (current) use of antithrombotics/antiplatelets; Z79.4 Long term (current) use of insulin; I25.10 Atherosclerotic heart disease of native coronary artery without angina pectoris; I25.2 Old myocardial infarction; K21.0 Gastro-esophageal reflux disease with esophagitis; F41.9 Anxiety disorder, unspecified; F32.9 Major depressive disorder, single episode, unspecified; I12.0 Hypertensive chronic kidney disease with stage 5 chronic kidney disease or end stage renal disease; E11.22 Type 2 diabetes mellitus with diabetic chronic kidney disease; N18.6 End stage renal disease; E78.00 Pure hypercholesterolemia, unspecified; G47.33 Obstructive sleep apnea (adult) (pediatric); E66.01 Morbid (severe) obesity due to excess calories; Z88.8 Allergy status to other drugs, medicaments and biological substances; Z68.35 Body mass index [BMI] 35.0-35.9, adult
CPT/HCPCS: J0690; J1100; J1644; J1815; J1885; J2370; J2405; J2704; J2765; J3010; J7121

== ENCOUNTER 2020-05-28 10:32 | Emergency (ER) | payer MEDICARE, OTHER ==
[~2020-05-28] VITALS: Ht 182.9 cm; Wt 117.9 kg
[~2020-05-28 10:32] MED LIST changes: +NORCO 5-325 TA1 EACH PO
--- OUTSIDE RECORDS SUMMARY | 2020-05-28 10:34 | XMS ---
PreManage Notification: DEXTER DAVE Security Range Scientist Events No recent Security Events currently on file CRITERIA MET - [facility] - Has Care Guidelines CARE PROVIDERS SHANAE KOEHLER [facility] 08/17/2018-Current PHONE: [phone] Florencia has no Care Guidelines for this patient. Care History Medical/Surgical 03/29/2019 [facility] - PATIENT HAS AN ACCOUNTS PAYABLE OR RECEIVABLE CLERK- DR RAMÍREZ IN [place] [facility] [phone]. - PATIENT HAS NOT SEEN ACCOUNTS PAYABLE OR RECEIVABLE CLERK SINCE DECEMBER 2018. CHW HAD RECENT ER RECORDS SENT TO DR RAMÍREZ FOR REVIEW AND FOLLOW UP. - PATIENT DOES NOT HAVE DHS -CAREGIVING SERVICES AT THIS TIME- PATIENT CAN APPLY FOR BENEFITS IF NEEDED. - PATIENT HAS A FOLLOW UP APT WITH DR KOEHLER ON 04/06/19 BUT IS ALSO ON THE CANCELLATION LIST IF SOMEONE CANCELS AN APT. - CHW CALLED PATIENT 2X AND LEFT A VOICEMAIL- E.D. VISIT COUNT (12 MO.) 1 [facility] TOTAL 1 NOTE: Visits indicate total known visits. ED/UCC VISIT TRACKING (12 MO.) 05/28/2020 10:[address] [facility] TYPE: Emergency COMPLAINT: - LOWER BACK PAIN/WEAKNESS INPATIENT VISIT TRACKING (12 MO.) No inpatient visits to display in this time frame [email or web address]
[2020-05-28] MEDS ORDERED: NORCO 5-325 TA1 EACH PO (14:45)
== END 2020-05-28 15:05 | disposition home or self-care (01) ==
LOC: ED 10:32
DX: M54.41 Lumbago with sciatica, right side (principal); I10 Essential (primary) hypertension; E11.9 Type 2 diabetes mellitus without complications; I25.2 Old myocardial infarction; Z87.891 Personal history of nicotine dependence; Z88.8 Allergy status to other drugs, medicaments and biological substances; Z79.899 Other long term (current) drug therapy; Z79.4 Long term (current) use of insulin
CPT/HCPCS: 72131; 80053; 85025; 85651; 96374; 96375; 99284-25; J1170; J2405

== ENCOUNTER 2021-10-18 23:00 | Emergency (ER) | payer MEDICARE, OTHER ==
[~2021-10-18] VITALS: Ht 182.9 cm; Wt 123.0 kg
[2021-10-18] MEDS ORDERED: TOUJEO MAX300 UNIT/1 SUB-Q (23:19)
[2021-10-18] MEDS ORDERED: FLECAINIDE ACET50 MG PO (23:19)
[2021-10-18] MEDS ORDERED: COLESTIPOL HCL1 GM PO (23:19)
[2021-10-18] MEDS ORDERED: ELIQUIS5 MG PO (23:20)
[2021-10-18] MEDS ORDERED: NOVOLOG FL100 UNIT/1 SUB-Q (23:20)
[2021-10-18] MEDS ORDERED: FLUTICASONE PRO16 GM NAS (23:20)
[2021-10-19] MEDS ORDERED: LASIX20 MG PO (00:18)
--- NOTE | 2021-10-19 17:20 | EKG ---
[facility] [address] [facility] [place] [address] Signed Atrial fibrillation with a competing junctional pacemaker Right bundle branch block Abnormal ECG When compared with ECG of 28-JUN-2019 08:24, Atrial fibrillation has replaced Sinus rhythm Confirmed by BIANKA PEMBERTON MD ([id number]) on 10/19/2021 5:20:42 PM Electronically Signed By: BIANKA PEMBERTON MD 10/19/21 1720 PATIENT NAME: DEXTER DAVE Electrocardiogram DATE OF : 40 PHYSICIAN: BIANKA PEMBERTON MD REPORT #: [id number] REPORT IS CONFIDENTIAL AND NOT TO BE RELEASED WITHOUT AUTHORIZATION
== END 2021-10-19 01:06 | disposition home or self-care (01) ==
LOC: ED 23:00
DX: I13.0 Hypertensive heart and chronic kidney disease with heart failure and stage 1 through stage 4 chronic kidney disease, or unspecified chronic kidney disease (principal); I50.9 Heart failure, unspecified; E11.22 Type 2 diabetes mellitus with diabetic chronic kidney disease; N18.30 Chronic kidney disease, stage 3 unspecified; Z20.822 Contact with and (suspected) exposure to COVID-19; I25.2 Old myocardial infarction; Z85.038 Personal history of other malignant neoplasm of large intestine; Z87.891 Personal history of nicotine dependence; Z88.8 Allergy status to other drugs, medicaments and biological substances; Z79.899 Other long term (current) drug therapy; Z79.4 Long term (current) use of insulin
CPT/HCPCS: 36415; 71045; 80053; 82803; 83880; 84484; 85025; 85379; 87502; 93005; 93010; 96374; 99285-25; C9803; J1940; U0003

== ENCOUNTER 2021-11-04 23:34 | Emergency (ER) | payer MEDICARE, OTHER ==
[~2021-11-04] VITALS: Ht 182.9 cm; Wt 122.5 kg
[~2021-11-04 23:34] MED LIST changes: +ELIQUIS5 MG PO; +FLECAINIDE ACET50 MG PO; +FLUTICASONE PRO16 GM NAS; +LASIX20 MG PO; +NOVOLOG FL100 UNIT/1 SUB-Q; +TOUJEO MAX300 UNIT/1 SUB-Q
--- OUTSIDE RECORDS SUMMARY | 2021-11-04 23:40 | XMS ---
PreManage Notification: DEXTER DAVE Security Black Pickler Events No recent Security Events currently on file CRITERIA MET - [facility] - 2 Visits in 30 Days CARE PROVIDERS SHANAE KOEHLER [facility] 08/17/2018-Current PHONE: Unknown MOHAN HASTINGS Physician Gasoline Tester Current PHONE: [phone] Florencia has no Care Guidelines for this patient. Care History Medical/Surgical 03/29/2019 [facility] - PATIENT HAS AN CREDIT OR LOANS OFFICER- DR RAMÍREZ IN [facility] [phone]. - PATIENT HAS NOT SEEN CREDIT OR LOANS OFFICER SINCE DECEMBER 2018. CHW HAD RECENT ER [...] A VOICEMAIL- E.D. VISIT COUNT (12 MO.) [address] [facility] TOTAL 2 NOTE: Visits indicate total known visits. 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 - Allergy status to other drugs, medicaments and biological substances - Other industrial gas servicer (current) drug therapy - Type 2 diabetes mellitus with diabetic chronic kidney disease - Heart failure, unspecified - Hypertensive heart and chronic kidney disease with heart failure and stage 1 through stage 4 chronic kidney disease, or unspecified chronic kidney disease - Contact with and (suspected) exposure to COVID-19 - Chronic kidney disease, stage 3 unspecified INPATIENT VISIT TRACKING (12 MO.) No inpatient visits to display in this time frame [email or web address]
[2021-11-05] MEDS ORDERED: LASIX20 MG PO (00:42)
== END 2021-11-05 00:58 | disposition home or self-care (01) ==
LOC: ED 23:34
DX: I13.0 Hypertensive heart and chronic kidney disease with heart failure and stage 1 through stage 4 chronic kidney disease, or unspecified chronic kidney disease (principal); I50.9 Heart failure, unspecified; N18.30 Chronic kidney disease, stage 3 unspecified; E11.22 Type 2 diabetes mellitus with diabetic chronic kidney disease; Z88.8 Allergy status to other drugs, medicaments and biological substances; Z79.899 Other long term (current) drug therapy; Z79.4 Long term (current) use of insulin; D63.1 Anemia in chronic kidney disease
CPT/HCPCS: 36415; 71045; 80053; 83735; 83880; 85025; 96374; 99285-25; J1940

== ENCOUNTER 2022-04-10 02:07 | Emergency (ER) | payer MEDICARE, OTHER ==
[~2022-04-10] VITALS: Ht 154.9 cm; Wt 120.0 kg
[2022-04-10] MEDS ORDERED: CINNAMON500 MG PO (02:18)
--- NOTE | 2022-04-10 17:51 | EKG ---
[facility] [address] [facility] [place] [address] Signed Atrial fibrillation with a competing junctional pacemaker Right bundle branch block Abnormal ECG No previous ECGs available Confirmed by AMANDA KRAUS MD ([id number]) on 04/10/2022 5:51:35 PM Electronically Signed By: AMANDA KRAUS MD 04/10/221750 PATIENT NAME: DEXTER DAVE Electrocardiogram DATE OF : 40 PHYSICIAN: AMANDA KRAUS MD REPORT #: [id number] REPORT IS CONFIDENTIAL AND NOT TO BE RELEASED WITHOUT AUTHORIZATION
--- NOTE | 2022-04-10 17:51 | EKG ---
[facility] [address] [facility] [place], [place] [address] Signed Atrial fibrillation Right bundle branch block Abnormal ECG When compared with ECG of 10-APR-2022 02:03, (Unconfirmed) No significant change was found Confirmed by AMANDA KRAUS MD ([id number]) on 04/10/2022 5:51:44 PM Electronically Signed By: AMANDA KRAUS MD 04/10/221750 PATIENT NAME: DEXTER DAVE Electrocardiogram DATE OF : 40 PHYSICIAN: AMANDA KRAUS MD REPORT #: [id number] REPORT IS CONFIDENTIAL AND NOT TO BE RELEASED WITHOUT AUTHORIZATION
== END 2022-04-10 05:06 | disposition home or self-care (01) ==
LOC: ED 02:07
DX: M25.512 Pain in left shoulder (principal); I48.91 Unspecified atrial fibrillation; I12.9 Hypertensive chronic kidney disease with stage 1 through stage 4 chronic kidney disease, or unspecified chronic kidney disease; N18.30 Chronic kidney disease, stage 3 unspecified; E11.9 Type 2 diabetes mellitus without complications; Z87.891 Personal history of nicotine dependence; Z95.5 Presence of coronary angioplasty implant and graft; Z88.8 Allergy status to other drugs, medicaments and biological substances; Z79.899 Other long term (current) drug therapy; Z79.4 Long term (current) use of insulin
CPT/HCPCS: 36415; 71045; 80053; 83735; 84484; 85025; 85610; 93005; 93010; J2270; J2405

== ENCOUNTER 2022-09-28 08:47 | Inpatient (IN) | payer MEDICARE, OTHER ==
[~2022-09-28] VITALS: Ht 180.3 cm; Wt 117.4 kg
--- NOTE | ~2022-09-28 | DS ---
[facility] [address] [facility] [place] [address] Draft ADMISSION DATE: 09/28/2022 DISCHARGE DATE: 10/01/2022 REASON FOR ADMISSION: Small bowel obstruction. HISTORY: This 82-year-old white man who presented to emergency room with findings suggestive of small-bowel obstruction as well as electrolyte disturbances including elevated creatinine. He has a long-standing history of atrial fibrillation, is chronically anticoagulated with Eliquis and is additionally on Plavix. He has been admitted to the hospital at [place] previously for various problems. On his current admission, he has had vomiting for the previous three days to admission. He presented to the emergency room where he was evaluated by Dr. Aparicio. A CT scan was performed highly suggestive of small bowel obstruction. Other abnormalities include an elevated white count of 12.5, potassium 5.3, sodium 125, bicarb 22, chloride 90, creatinine of 3.38. He was admitted for further evaluation and care. PERTINENT PHYSICAL EXAMINATION: GENERAL: Showed an obese white man, who did not look systemically toxic. NECK: Trachea was midline. HEART: Irregularly irregular. CHEST: X-ray was normal. Chest was clear. A nasogastric tube was placed with the tip into the stomach. VITAL SIGNS: His temperature 97.7, pulse 90, respirations 23, blood pressure 133/62, pulse oximetry 98%. ABDOMEN: Quite obese, but soft. A right transverse abdominal incision was noted related to prior right colectomy performed in [place] more than 30 years ago. HOSPITAL COURSE: He was maintained with nasogastric tube decompression, IV fluid administration, and so on. He was clinically rather dehydrated. Consultation was undertaken with Dr. Whitman, hospitalist who helps manage his medications and electrolyte resuscitation. Additionally, she managed his blood glucose issues. The patient had relatively prompt improvement. Followup KUB showed no evidence, clearly a bowel obstruction. Ultimately, his nasogastric tube was removed. He was advanced on a clear liquid diet, ultimately a regular diet. By day of discharge, he was ambulating well, tolerating a regular diet. He has no abdominal pain or tenderness and bowel movements and clinical resolution of the bowel obstruction. PATIENT NAME: DEXTER DAVE DISCHARGE SUMMARY DATE OF : 40 REPORT #: [id number] PHYSICIAN: ARSENIO SIN MD PCP: APRIL SANTIZO PA-C REPORT IS CONFIDENTIAL AND NOT TO BE RELEASED WITHOUT AUTHORIZATION [facility] [address] [place], [place] [address] Draft DISCHARGE MEDICATIONS: Would include: 1. Hydralazine 25 mg p.o. b.i.d. 2. Citalopram 40 mg p.o. daily. 3. Plavix 75 mg p.o. daily. 4. Losartan 50 mg p.o. at bedtime. 5. Fenofibrate 54 mg p.o. daily. 6. Nitroglycerin sublingual 0.4 mg tabs as needed for chest pain. 7. Allopurinol 100 mg p.o. daily. 8. Insulin glargine, Humulin, analog 15 units subcutaneously depending on blood sugars. 9. NovoLog 10-30 units subcutaneously twice daily as needed for diabetes depending on blood sugar. 10. Eliquis 5 mg p.o. b.i.d. 11. Cinnamon bark 500 mg two tablets p.o. daily. 12. Carvedilol 12.5 mg p.o. b.i.d. 13. Acetamide 10 mg p.o. daily. 14. Omeprazole 20 mg p.o. daily. 15. Giardia is 10 mg p.o. daily. 16. Tamsulosin (Flomax) 0.4 mg p.o. at bedtime. 17. Trulicity 1.5 mg/0.5 mL, 1.5 mg subcutaneously weekly for diabetes. DISCHARGE DIAGNOSES: 1. Small bowel obstruction with spontaneous resolution with conservative measures. 2. Obesity. 3. Distant history of right colectomy for colon cancer through right transverse abdominal incision. 4. Diabetes mellitus. 5. Atrial fibrillation with anticoagulation. 6. Gout. FOLLOWUP PLANS: No specific will be needed in my office. He will follow up in his usual pattern with his primary provider, April Santizo. MD CARSON Clinton/MODL /[id number] PATIENT NAME: DEXTER DAVE DISCHARGE SUMMARY DATE OF : 40 REPORT #: [id number] PHYSICIAN: ARSENIO SIN MD PCP: APRIL SANTIZO PA-C REPORT IS CONFIDENTIAL AND NOT TO BE RELEASED WITHOUT AUTHORIZATION [address] [address] Draft cc: Dr. Antonette Santizo PA-C Copies: APRIL SANTIZO PA-C ~ PATIENT NAME: DEXTER DAVE DISCHARGE SUMMARY DATE OF : 40 REPORT #: [id number] PHYSICIAN: ARSENIO SIN MD PCP: APRIL SANTIZO PA-C REPORT IS CONFIDENTIAL AND NOT TO BE RELEASED WITHOUT AUTHORIZATION
[2022-09-28] MEDS ORDERED: CARVEDILOL12.5 MG PO (14:13)
[2022-09-28] MEDS ORDERED: EZETIMIBE10 MG PO (14:15)
[2022-09-28] MEDS ORDERED: OMEPRAZOLE20 MG PO (14:16)
[2022-09-28] MEDS ORDERED: JARDIANCE10 MG PO (14:17)
[2022-09-28] MEDS ORDERED: TAMSULOSIN HCL0.4 MG PO (14:17)
[2022-09-28] MEDS ORDERED: TRULICITY1.5 MG/0.5 SUB-Q (14:19)
[2022-09-28 14:41] VITALS: BP 150/60
--- NOTE | 2022-09-28 15:18 | NUR ---
New admit to the medical floor. Patient arrived alert and oriented x4. Patient reports having several days of n/v at home. 16FR NG to left nares, suction to LIWS, scant light brown gastric content in tubing. Vital signs are stable, afebrile. IV site patent, fluids infusing per provider order. Patient oriented to room and call light. Bed alarm in place. Patient has no needs.
[2022-09-28 18:36] VITALS: BP 150/60
--- NOTE | 2022-09-28 18:53 | NUR ---
NEW ORDERS FOR POST VOID RESIDUALS RECEIVED FROM DR. KRAUS. ORDERS ENTERED. REAPEAT BACK PERFORMED.
--- NOTE | 2022-09-28 19:15 | NUR ---
shift rpeort received from dayshift robert doss at bedside. pt awake and resting in bed, ng tube to liws, scant light green/yellow output. pt denies nausea, reports scant intermittent abd pain, denies need for pain medication. iv fluids infusing wnl. bed alarm on and call light in reach. no needs or concerns verbalized.
[2022-09-28 20:43] VITALS: BP 130/50
--- NOTE | 2022-09-28 21:00 | NUR ---
ASSESSMENT COMPLETE, BLOOD SUGER RESULT OF 269, INSULIN SS ADMINISTERED-SEE EMAR. pt STATES, "I TRY AND KEEP IT UNDER 200 AT HOME". NEW BAG IV FLUIDS INFUSING DIRECTED, IV SITES X2 WNL. TELE#[address]-AFIB PER MONITOR. pt DENIES PAIN AND NAUSEA. NG TUBE REMAINS TO LIWS, FLUSHED WITH APPROX 50MLS TAP WATER-RETURN NOTED WHEN CONNECTED BACK TO SUCTION. BOWEL TONES ACTIVE WHEN AUSCULTATED W/ NG TUBE OFF. pt REPORTS NEED TO VOID, RN YOLANDA AND CORNCOB PIPES ASSEMBLER TO ASSIST AND BLADDER SCAN RESIDUAL VOID PER MD ORDERS. CALL LIGHT IN REACH AND BED ALARM ON.
--- NOTE | 2022-09-28 21:35 | NUR ---
PT CALLED REQUESTED TO GET UP TO BSC. 2 PERSON ASSIST, HOWEVER, PT ABLE TO STAND WITH MIMINAL ASSISTANCE. ONCE ON THE COMMODE PT "KICKED" THE TWO RN'S OUT OF HIS ROOM. STATED TO GET THE OUT OF MY ROOM, I CAN "PULL MY UNDERWEAR DOWN ALONE. EDUCATED ON SAFETY OF STAFF ASSISTING, POTENTIAL OF FALLING, PT SAID GET OUT. BOTH STAFF OUTSIDE DOOR, CHECKED ON HIM. HE HAD PUT SELF INTO BED, WAS AWARE OF THE TUBES. ABLE TO FOLLOW COMMANDS AND STAND UP TO GET HIGHER INTO BED, PUT FEET INTO BED. VOIDED 600. BLADDER SCAN ZERO AMOUNT
--- NOTE | 2022-09-28 22:10 | NUR ---
pt RESTING QUIETLY IN BED, ON RA. RR EVEN AND UNLABORED. NO DISTRESS NOTED, BED ALARM ON AND CALL LIGHT IN REACH.
--- NOTE | 2022-09-29 00:01 | NUR ---
pt RESTING IN BED WITH EYES CLOSED, ON RA. RR EVEN AND UNLABORED. IV SITE WNL, FLUIDS INFUSING DIRECTED. BED ALARM ON AND CALL LIGHT IN REACH. NG TUBE REMAINS SECURED TO NOSE AND AT LIWS. OUTPUT REMAINS SCANT.
--- NOTE | 2022-09-29 01:28 | NUR ---
iv pump alarming, issue resolved. iv site remaisn wnl, pT briefly awoke with alarm. denied needs or concerns. call light in reach.
[2022-09-29 02:37] VITALS: BP 135/60
--- NOTE | 2022-09-29 02:57 | NUR ---
assessment complete, scheduled accucheck result of 216, insulin ss given see emar- verified with second rn leonarda. no acute cahnges to assessment. pt awoke to voice, denies nausea or pain. appears very relaxed and comfortable. ng tube to liws, scant output remains. tube patent with contents moving through tube. call light inr each and bed alarm remains on for safety. vss.
--- NOTE | 2022-09-29 05:20 | NUR ---
pt voided 450mls, bladder scanned for residual-result of 306. no additional needs or concerns verbalized. call light in reach.
[2022-09-29 05:34] VITALS: BP 131/66
--- NOTE | 2022-09-29 05:46 | NUR ---
vss and i&o's complete. ng tube patent, flushed with 40-50mls tap water, return noted. actual output for shift scant-approx 10mls. pt reports passing gas during the night, abd at baseline per pt, nondistended and not tender w/ palpation. pt denies nausea and abd pain. ng tube remains at liws. no additional needs or concerns verbalized by pt. call light in reach and bed alarm on. relief charge nurserobert brower updated on above information.
--- NOTE | 2022-09-29 07:39 | NUR ---
RECEIVED REPORT FROM NOC NURSE. PT IS A/O, SITTING UP IN BED. RADIOLOGY HAS JUST COMPLETED IMAGING. NG IN PLACE TO LIS. STATES HE HAS BEEN PASSING GAS. DENIES NEEDS ATT.
--- NOTE | 2022-09-29 07:51 | NUR ---
PT ASSESSMENT AND MEDICATION ADMINISTRATION COMPLETED. IV FLUIDS RUNNING. NG IN PLACE. PT DENIES NEEDS/ COMPLAINTS ATT. CALL LIGHT WITHIN REACH.
[2022-09-29 09:34] VITALS: BP 151/67
--- NOTE | 2022-09-29 10:01 | NUR ---
ROUNDED ON PT. PT APPEARS TO BE SLEEPING COMFORTABLY. RESPIRATIONS EVEN AND REGULAR. CALL LIGHT WITHIN REACH.
--- NOTE | 2022-09-29 11:28 | NUR ---
PT APPEARS TO BE SLEEPING COMFORTABLY. RESPIRATIONS EVEN AND REGULAR. NG TUBE IN PLACE. IV FLUIDS RUNNING. CALL LIGHT WITHIN REACH.
--- NOTE | 2022-09-29 13:02 | HP ---
[facility] [address] [place], [place] [address] Signed ADMISSION DATE: 09/28/2022 PROBLEM: Small-bowel obstruction and electrolyte disturbances including elevated creatinine. HISTORY OF PRESENT ILLNESS: This 82-year-old white man has long-standing history of atrial fibrillation, chronically anticoagulated with Eliquis. He has been vomiting for the past three days. He is reported to have continuous vomiting. He presented to the emergency room where he was evaluated by Dr. Aparicio. A CT scan was performed, which is highly suggestive of small bowel obstruction. Concurrent abnormalities include an elevated white count of 12.5, potassium 5.3, sodium 125, bicarb 22, chloride 90 and a creatinine of 3.38. He has variably had elevated creatinine over many years upon review of his record. The patient has no significant abdominal pain. PAST MEDICAL HISTORY: Does include colon resection for colon cancer in [place]. A right transverse abdominal incision was used for that. The patient denies any prior history of bowel obstruction or admission for same. He is admitted for further evaluation and care. REVIEW OF SYSTEMS: He denies any shortness of breath or chest pain. He has had no dysphagia or hematemesis or blood per rectum that he is aware of. ALLERGIES: Statin medications. CURRENT MEDICATIONS: Include hydralazine, Dexilant, citalopram, clopidogrel, Tradjenta, colestipol, insulin, allopurinol, losartan, fenofibrate, nitroglycerin, apixaban (Eliquis), and cinnamon bark. SOCIAL HISTORY: He lives with his son, Mason. He has grown sons, one of whom (Damon) was a high school classmate of mine in the distant past. REVIEW OF SYSTEMS: Denies any shortness of breath or chest pain. He has had no dysphagia and no Electronically Signed By: ARSENIO SIN MD 09/29/22 1302 PATIENT NAME: DEXTER DAVE HISTORY AND PHYSICAL DATE OF : 40 REPORT #: [id number] PHYSICIAN: ARSENIO SIN MD PCP: MOHAN HASTINGS PA-C REPORT IS CONFIDENTIAL AND NOT TO BE RELEASED WITHOUT AUTHORIZATION [facility] [address] [place], [place] [address] Signed hematemesis and denies blood per rectum. PHYSICAL EXAMINATION: GENERAL: An obese white man who does not look systemically toxic at this time. He is not dyspneic. HEENT: Trachea is midline. HEART: Irregularly irregular. Chest x-ray is completely normal. Nasogastric tube was passed to the stomach with my assistance previously having been partially "hung up" in the mid esophagus. The output of the nasogastric tube is rather minimal and not associated with any bile. ABDOMEN: Quite obese, but soft. A right transverse abdominal incision is noted. He does not have local tenderness. EXTREMITIES: Show mild edema. VITAL SIGNS: His temperature is 97.7, pulse is 90, respirations 23, blood pressure 133/60, pulse oximetry is 98%. LABORATORY STUDIES: Show white count of 12.5, hematocrit 42.1, and platelets 287,000. Electrolytes as previously reported. Notably, additionally calcium is 11.0, total bilirubin 1.2. Liver enzymes normal. ASSESSMENT: I have reviewed the CT scan. The report from the radiologist was reviewed as well. A "mildly dilated proximal small bowel with possible transition point in the central abdomen" is noted with suspicion for small bowel obstruction. I am not entirely certain that there is truly an obstruction. He does have dilated loops of bowel and certainly he has had nausea and vomiting. A nasogastric tube has been placed at this point. We will admit the patient for IV fluid administration in hopes of reducing clinical evidence of dehydration and elevated creatinine. We will consult Dr. Whitman, hospitalist for further assessment regarding his electrolyte disturbances which I believe largely are related to dehydration. He may require a small-bowel follow-through to more fully characterize the problem if he does not have prompt improvement. Arsenio Sin MD Electronically Signed By: ARSENIO SIN MD 09/29/22 1302 PATIENT NAME: DEXTER DAVE HISTORY AND PHYSICAL DATE OF : 40 REPORT #: [id number] PHYSICIAN: ARSENIO SIN MD PCP: MOHAN HASTINGS PA-C REPORT IS CONFIDENTIAL AND NOT TO BE RELEASED WITHOUT AUTHORIZATION [facility] [address] [place] [id number] Signed CARSON/RUTH /[id number] cc: CRISTINE Mandel MD Copies: MOHAN HASTINGS PA-C, CYNTHIA MD ~ Electronically Signed By: ARSENIO SIN MD 09/29/22 1302 PATIENT NAME: DEXTER DAVE HISTORY AND PHYSICAL DATE OF : 40 REPORT #: [id number] PHYSICIAN: ARSENIO SIN MD PCP: MOHAN HASTINGS PA-C REPORT IS CONFIDENTIAL AND NOT TO BE RELEASED WITHOUT AUTHORIZATION
--- NOTE | 2022-09-29 13:27 | NUR ---
NG TUBE REMOVED PER MD ORDER. PT TOLERATED WELL. CLEAR LIQUID DIET AT BEDSIDE FOR PT. EDUCATED ON TAKING INTAKE SLOWLY. CALL LIGHT WITHIN REACH.
--- NOTE | 2022-09-29 13:38 | NUR ---
SPOKE WITH DR SIN RE RESTARTING PT PO MEDICATIONS. VO DO NOT RESTART ATT. POSSIBLY TOMORROW DEPENDING ON HOW HIS BOWEL ISSUES RESOLVE.
[2022-09-29 13:46] VITALS: BP 149/71
--- NOTE | 2022-09-29 13:57 | NUR ---
TO PT ROOM FOR MEDICATION ADMINISTRATION. PT DENIES NAUSEA WITH THE START OF CLEAR LIQUIDS. REPORTS "FULL FEELING". CALL LIGHT WITHIN REACH.
--- NOTE | 2022-09-29 15:36 | NUR ---
PT REFUSED AMBULATION ATT. ENCOURAGED AND EDUCATED PT ON IMPORTNACE. STATES HE WILL WALK IN ONE HOUR.
--- NOTE | 2022-09-29 16:48 | NUR ---
PT AMBULATED SQUARE BY BACK NURSES STATION AND IN ROOM. DENIES WEAKNESS OR SOB. C/O HIP PAIN WHILE WALKING. ASSISTED PT BACK TO BED AND ENCOURAGED HIM TO WALK AGAIN BEFORE BED. CALL LIGHT WITHIN REACH.
[2022-09-29 17:02] VITALS: BP 144/79
--- NOTE | 2022-09-29 18:00 | NUR ---
NEW BAG OF LR HUNG. PT APPEARS TO BE SLEEPING COMFORTABLY. RESPIRATIONS EVEN AND REGULAR. CALL LIGHT WITHIN REACH.
--- NOTE | 2022-09-29 19:20 | NUR ---
REPORT RECEIVED FROM OFFGOING SHIFT. PT APPEARED TO BE SLEEPING AND DID NOT AWAKEN FOR BEDSIDE REPORT. CALL LIGHT IN REACH.
[2022-09-29 20:02] VITALS: BP 143/52
--- NOTE | 2022-09-29 21:45 | NUR ---
CALL LIGHT ANSWERED. SBA TO BATHROOM. PATIENT VOIDED 600ML DARK URINE. PATIENT WALKED AROUND THE NURSE'S STATION X1. PATIENT HOLD ON TO THE IV POLE AND RIGHT HAND HOLD ON TO THE WALL WHILE WALKING. PATIENT IS BACK IN BED. DENIES FURTHER NEEDS AT THIS TIME.
--- NOTE | 2022-09-30 02:05 | NUR ---
PT'S BG [place] 163 [place] [address] CHECK. HE WAS GIVEN 1 UNIT REGULAR INSULIN PER ORDER. NO OTHER NEEDS. PT WENT BACK TO SLEEP.
--- NOTE | 2022-09-30 02:55 | NUR ---
PT HAD REQUESTED AND WAS GIVEN MELATONIN 6 MG PO FOR SLEEP. HE IS NOW RESTING WITH EYES CLOSED. STATES HIS HEADACHE IS RELIEVED.
[2022-09-30 05:16] VITALS: BP 140/65
--- NOTE | 2022-09-30 05:43 | NUR ---
PT AMBUALTED IN [place] LAST NIGHT BEFORE BED. HE ASKED THIS AM IF HE COULD GO FOR A WALK IN THE [place]. BINDER CHAINSTITCH TOOK PT FOR A WALK. PT'S BG AT 1999 WAS 220, PT RECEIVED INSULIN COVERAGE OF 3 UNITS. AT 0200 HIS BG WAS 163 AND PT RECEIVED 1 UNIT INSULIN COVERAGE. PT HAS TOLERATED CLEAR LIQUIDS THIS SHIFT. PT HAS BOWEL TONES ALL 4 QUADS. PASSING OCCAISIONAL GAS.
--- NOTE | 2022-09-30 07:20 | NUR ---
RECEIVED REPORT ADVERTISING SALES AGENT NURSE. PATIENT CURRENTLY SLEEPING. REGULAR RESPIRATIONS NOTED. PATIENT IS ON CLEAR LIQUID, TELE #9. PATIENT CURRENTLY HAS LR RUNNING FOR FLUIDS.
--- NOTE | 2022-09-30 08:24 | NUR ---
PATIENT SL, PATIENT TAKEN DOWN IN WHEELCHAIR FOR XRAY. IS HERE AND WILL BE GOING TO SEE PATIENT ONCE HE IS BACK.
--- NOTE | 2022-09-30 08:37 | NUR ---
PATIENT IS BACK FROM XRAY.
[2022-09-30 10:29] VITALS: BP 128/68
--- NOTE | 2022-09-30 11:00 | NUR ---
Spoke with Godfrey. He states he gave his house to his son and they all live together now. He is in the lower part of the split and has 14 steps, he has handrails. He does not have any issues getting in our out or with stairs. Pt as a shower chair, walker, and a cane. His DIL cooks, shops, cleans. Pt states he shops at times and also drives. Pt feels he has everything he needs at home. He denies any financial issues and states he has money for his needs. His son pays the bills. He plans on dc to home with family when cleared medically.
--- NOTE | 2022-09-30 12:13 | NUR ---
medications reconciled using pharmacy records and patient interview
--- NOTE | 2022-09-30 12:21 | NUR ---
PATIENT CALLED WITH CALL LIGHT. PATIENT WAS ADJUSTING HIS SHORTS AND CAUGTHT HIS LEFT HAND IV WHEN DOING SO. HAND CLEANED UP OF BLOOD FROM THIS NURSE. WRAPPED IN COBAN. PATIENT STILL HAS LEFT AC IV. FLUIDS MOVED OVER TO PATIENTS LEFT AC IV. LINEN SHEET CHANGED OUT IT HAD BLOOD ON IT. CALL LIGHT WITHIN REACH. PATIENT HAS NOT HAD TO URINATE YET BUT SAYS ITS COMING. DENIES ANY CARES AT THIS TIME. PATIENT READY FOR LUNCH. CALL LIGHT WITHIN REACH.
[2022-09-30 13:19] VITALS: BP 133/69
--- NOTE | 2022-09-30 14:39 | NUR ---
PATIENT UP TO THE RESTROOM WITH AUTO PARTS CLERK AND WALKER. POST RESIDUAL BLADDER SCAN DONE. PATIENT VOIDED 500ML AND BLADDER SCAN SHOWED 15ML. OVERALL PATIENT HAS HAD A GREAT DAY AND VERY TALKATIVE. PATIENT TOLERATED LUNCH ALTHOUGH STATES HE DIDNT EAT MUCH IT TASTED BAD. NO NAUSEA. NO PAIN OR DISCOMFORT. PATIENT WOULD LIKE TO GET UP AND WALK THE HALLWAY.
--- NOTE | 2022-09-30 14:57 | NUR ---
PATIENT UP AND WALKED A LAP AROUND THE MED SURG FLOOR WITH HIS WALKER. NO COMPLICATIONS, PATIENT TOLERATED WELL. PATIENT BACK IN BED, SCD'S ON, IV FLUIDS RUNNING. PATIENT DENIES ANY OTHER CARES. CALL LIGHT WITHIN REACH.
[2022-09-30 17:49] VITALS: BP 126/59
--- NOTE | 2022-09-30 19:15 | NUR ---
REPORT RECEIVED FROM DAY SHIFT RN. PT IA AWAKE AND ALERT. RESTING ON HIS BED. CALLL LIGHT IN REACH. NO NEEDS .
[2022-09-30 20:15] VITALS: BP 156/65
--- NOTE | 2022-09-30 20:30 | NUR ---
PT WAS UP TO VOID. VOIDED 400. BLADDER RESIDUAL CHECKED WITH 52 MLS SEEN.
--- NOTE | 2022-10-01 | NUR ---
SBA TO THE BATHROOM. CHANGED DRAW SHEET SOILED WITH BM. PATIENT WAS OFFERED A PULL UP BUT HE REFUSED STATED, "IT'S OKAY". PATIENT IS BACK IN BED. SCD'S ON. BED ALARM ON. PATIENT VOIDED 450ML AND LOOSE BM. BLADDER SCANNED POST VOID IS 14ML.
--- NOTE | 2022-10-01 01:37 | NUR ---
ROOM CHECK. PT APPEARS TO BE ASLEEP. HIS BED ALARM IS ON PT HAS SCDS AND A IVF. CALL LIGHT IN REACH.
[2022-10-01 05:13] VITALS: BP 156/71
--- NOTE | 2022-10-01 05:28 | NUR ---
ASSISTED PT UP TO THE BATHROOM. HE VOIDED AND PASSED GAS BUT NO BM. BACK TO BED AND SCDS ON. VSS AFEBRILE.
--- NOTE | 2022-10-01 07:33 | NUR ---
RECEIVED REPORT FROM DIGITAL TECHNICIAN NURSE. PATIENT CURRENTLY SLEEPING. REGULAR RESPIRATIONS NOTED.
--- NOTE | 2022-10-01 07:39 | NUR ---
PT IN BED. BS TAKEN. RN NOTIFIED. PT ASSISTED TO BR. PT REFUSED TO USE FWW. SO PT SBA TO BR. RN NOW IN ROOM TO BLADDER SCAN PT.
--- NOTE | 2022-10-01 08:03 | NUR ---
PATIENT HAS BEEN UP AND VOIDED 400. POST BLADDER SCAN SHOWED 44ML LEFT OVER. PATIENT BACK SITTING UP IN BED WAITING FOR BREAKFAST. PT GIVEN 1 UNIT OF INSULIN, AND HIS MORNING MEDICATIONS. PATIENT HAS LR RUNNING AT 100. PATIENT DENIES ANY PAIN OR ABDOMINAL DISCOMFORT. PATIENT HAS TROUBLE EATTING HE DOES NOT LIKE THE FOOD. PATIENT WAS GIVEN A MENU TO HELP THIS CONCERN SO THAT HE CAN CALL AND ORDER HIS FOOD. PATIENT HAS SCD'S ON. CALL LIGHT WITHIN REACH DENIES ANY OTHER CARES AT THIS TIME.
[2022-10-01 09:44] VITALS: BP 126/59
[2022-10-01 11:27] VITALS: BP 140/77
--- NOTE | 2022-10-01 11:45 | NUR ---
PATIENT READY TO DISCHARGE. CURRENTLY WAITING FOR HIS RIDE. IV HAS BEEN REMOVED, CATH INTACT, COBAN APPLIED. PATIENT DRESSED. PATIENT HAS BEEN GIVEN BACK HIS HOME MEDICATIONS FROM THE [facility]. PATIENT EDUCATION GIVEN, PHARMACY HAS SEEN PATIENT. PATIENT HAS FOLLOW UP SCHEDULED WITH PCP.
--- NOTE | 2022-10-01 12:54 | NUR ---
CONNECTED WITH PT HOME GUERRERO AND SN BOWMAN WERE TAKING PT TO CAR FOR DC. PT SAID HE IS FEELING MUCH BETTER, GAVE ENCOURAGEMENT-TP ACKNOWLEDGED, THANKED ME.
== END 2022-10-01 11:58 | disposition home or self-care (01) | DRG 389 ==
LOC: ED 08:47 → MS 11:25
PROVIDERS: ADMIT Surgery; ATTEND Surgery
PROC: 0D9670Z Drainage of Stomach with Drainage Device, Via Natural or Artificial Opening (ICD-10-PCS; principal; 2022-09-28)
DX: K56.609 Unspecified intestinal obstruction, unspecified as to partial versus complete obstruction (principal); E87.1 Hypo-osmolality and hyponatremia; I48.11 Longstanding persistent atrial fibrillation; N17.9 Acute kidney failure, unspecified; Z20.822 Contact with and (suspected) exposure to COVID-19; E86.0 Dehydration; E66.9 Obesity, unspecified; Z68.36 Body mass index [BMI] 36.0-36.9, adult; M10.9 Gout, unspecified; F41.0 Panic disorder [episodic paroxysmal anxiety]; I12.9 Hypertensive chronic kidney disease with stage 1 through stage 4 chronic kidney disease, or unspecified chronic kidney disease; N18.30 Chronic kidney disease, stage 3 unspecified; N40.0 Benign prostatic hyperplasia without lower urinary tract symptoms; I25.10 Atherosclerotic heart disease of native coronary artery without angina pectoris; E11.22 Type 2 diabetes mellitus with diabetic chronic kidney disease; Z90.49 Acquired absence of other specified parts of digestive tract; Z85.038 Personal history of other malignant neoplasm of large intestine; I25.2 Old myocardial infarction; Z87.891 Personal history of nicotine dependence; Z90.89 Acquired absence of other organs; Z95.5 Presence of coronary angioplasty implant and graft; Z88.8 Allergy status to other drugs, medicaments and biological substances; Z79.4 Long term (current) use of insulin; Z79.01 Long term (current) use of anticoagulants; Z79.899 Other long term (current) drug therapy
CPT/HCPCS: 36415; 71045; 74018; 74176; 80048; 80053; 81003; 83690; 83735; 83880; 85025; 94760; C9803; J1650; J1815; J7030; J7121; U0003

== ENCOUNTER 2024-07-24 07:51 | Inpatient (IN) | payer MEDICARE, OTHER ==
[~2024-07-24] VITALS: Ht 180.3 cm; Wt 80.0 kg
[2024-07-24] VITALS (25 sets, daily range): BP systolic 68–115; BP diastolic 52–77
[~2024-07-24 07:51] MED LIST changes: +EZETIMIBE10 MG PO; +JARDIANCE10 MG PO; +OMEPRAZOLE20 MG PO; +TAMSULOSIN HCL0.4 MG PO; +TRULICITY1.5 MG/0.5 SUB-Q
[2024-07-24] MEDS ORDERED: LIDOCAINE 2% VISCOUS 6 ML SYR TOP ONE (08:00)
[2024-07-24] MEDS ORDERED: SODIUM CHLORIDE 0.9% 1,000 ML IV ONE ×3 (08:00→11:15)
[2024-07-24 08:23] LABS: BASOPHILS 0.1 % (0-2); HEMATOCRIT 40.5 % (35.0-50.0); HEMOGLOBIN 12.5 g/dL (12.0-18.0); LYMPHOCYTES 2.5 % (24-44); MCH 24.7 (27-36); MCHC 30.9 g/dl (30-36); MCV 79.9 fl (81-99); MONOCYTES 7.1 % (0-12); NEUTROPHILS 90.3 % (39-80); PLATELET COUNT 288 K/uL (140-440); RBC 5.07 M/ul (4.3-5.7); RDW 15.8 (10.5-15.0)
[2024-07-24] MEDS ORDERED: METOPROLOL TARTRATE 5 MG/5 ML VIAL IV SCH (08:30)
[2024-07-24 08:43] LABS: LACTIC ACID, BLOOD 5.4 mmol/L (0.4-2.0)
[2024-07-24 08:45] LABS: ALBUMIN 3.4 g/dL (3.4-5.0); ALBUMIN/GLOBULIN RATIO 0.97 (1.1-2.4); ANION GAP 20.2 (7-21); BILIRUBIN, TOTAL 0.8 ng/dL (0.2-1.0); BUN/CREATININE RATIO 25.39 (6.0-28.6); CALCIUM 9.7 mg/dL (8.5-10.1); CREATININE, SERUM 2.52 mg/dL (0.70-1.30); POTASSIUM 4.2 mmol/L (3.5-5.1); PROTEIN, TOTAL 6.9 g/dL (6.4-8.2)
[2024-07-24] MEDS ORDERED: CEFTRIAXONE/SODIUM CHLORIDE 2 GM/100 ML PIGGYBACK IV ONE (09:00)
[2024-07-24] MEDS ORDERED: LORazepam 2 MG/ML VIAL IV ONE ×2 (09:00→09:30)
[2024-07-24] MEDS ORDERED: SODIUM CHLORIDE 0.9% 500 ML IV PRN (09:00)
[2024-07-24] MEDS ORDERED: INSULIN REGULAR IN 0.9 % NACL 100 ML IV SCH (09:30)
[2024-07-24 10:19] LABS: BILIRUBIN, URINE NEGATIVE (negative); BLOOD/HGB, URINE LARGE (Negative); KETONE, URINE TRACE (Negative); LEUK ESTERASE, URINE SMALL (negative); NITRITE, URINE NEGATIVE (negative); PH, URINE 5.5 (5-7)
[2024-07-24 10:29] LABS: BACTERIA, URINE 1+ /hpf (negative); CRYSTALS, URINE NONE SEEN (0-1+); EPITHELIAL CELLS, URINE SQUAMOUS 1+ /lpf (0-1+); WHITE BLOOD CELLS, URINE >50 /HPF (0-5)
[2024-07-24 10:30] LABS: CASTS, URINE NONE SEEN \\lpf; COLLECTION TYPE, URINE CLEAN CATCH; REFLEX CULTURE, URINE Yes (No)
[2024-07-24 10:57] LABS: LACTIC ACID, BLOOD 5.5 mmol/L (0.4-2.0)
[2024-07-24] MEDS ORDERED: fentaNYL citrate 100 MCG/2 ML VIAL IV PRN ×2 (11:00→16:45)
[2024-07-24] MEDS ORDERED: ACETAMINOPHEN 325 MG TAB PO PRN (12:30)
[2024-07-24] MEDS ORDERED: IBLOOD GLUCOSE TEST STRIP 1 EA TEST XX PRN (12:30)
[2024-07-24] MEDS ORDERED: DEXTROSE 5% - NACL 0.45% 1,000 ML IV SCH (12:30)
[2024-07-24] MEDS ORDERED: ondansetron HCL 4 MG/2 ML VIAL IV PRN (12:30)
[2024-07-24] MEDS ORDERED: Insulin Regular 100 Unit/100 Ml Bag IV SCH (12:30)
[2024-07-24] MEDS ORDERED: GLUCAGON,HUMAN RECOMBINANT 1 MG/ML VIAL SUB-Q PRN (12:30)
[2024-07-24] MEDS ORDERED: DEXTROSE 50% 50 ML SYR IV PRN ×2 (12:30)
[2024-07-24] MEDS ORDERED: DEXTROSE 5% 1,000 ML IV PRN (12:30)
[2024-07-24] MEDS ORDERED: IBLOOD GLUCOSE TEST STRIP 1 EA TEST VI SCH ×2 (13:00→20:00)
[2024-07-24] MEDS ORDERED: LACTATED RINGER'S 1,000 ML IV SCH ×2 (13:30→15:15)
[2024-07-24 14:02] LABS: CREATINE KINASE 1167 U/L (39-308)
[2024-07-24 14:37] LABS: ANION GAP 20.4 (7-21); BUN/CREATININE RATIO 27.75 (6.0-28.6); CREATININE, SERUM 2.09 mg/dL (0.70-1.30); POTASSIUM 3.4 mmol/L (3.5-5.1)
[2024-07-24] MEDS ORDERED: POTASSIUM CHLORIDE 40 MEQ,LIDOCAINE HCL 1% 40 MG in DEXTROSE 5% 250 ML IV ONE (16:30)
[2024-07-24 18:18] LABS: ANION GAP 15.9 (7-21); BUN/CREATININE RATIO 33.33 (6.0-28.6); CALCIUM 8.8 mg/dL (8.5-10.1); CREATININE, SERUM 1.65 mg/dL (0.70-1.30); POTASSIUM 3.9 mmol/L (3.5-5.1)
[2024-07-24] MEDS ORDERED: INSULIN LISPRO 100 UNIT/ML ML SUB-Q SCH (20:00)
[2024-07-24] MEDS ORDERED: LACTATED RINGER'S 1,000 ML IV ONE (20:15)
[2024-07-24] MEDS ORDERED: METOPROLOL TARTRATE 5 MG/5 ML VIAL IV PRN (20:45)
[2024-07-24 22:14] LABS: ANION GAP 14.9 (7-21); BUN/CREATININE RATIO 34.61 (6.0-28.6); CALCIUM 8.4 mg/dL (8.5-10.1); CREATININE, SERUM 1.56 mg/dL (0.70-1.30); POTASSIUM 4.9 mmol/L (3.5-5.1)
[2024-07-24] MEDS ORDERED: NOREPINEPHRINE BITARTRATE 250 ML IV SCH (22:15)
[2024-07-24] MEDS ORDERED: NOREPINEPHRINE BITARTRATE 250 ML IV ONE (22:16)
[2024-07-24] MEDS ORDERED: ALBUTEROL SULFATE 0.083% 3 ML VIAL INH PRN (23:00)
[2024-07-25] VITALS (25 sets, daily range): BP systolic 86–121; BP diastolic 53–84
[2024-07-25 02:13] LABS: ANION GAP 13.5 (7-21); BUN/CREATININE RATIO 36.73 (6.0-28.6); CALCIUM 8.4 mg/dL (8.5-10.1); CREATININE, SERUM 1.47 mg/dL (0.70-1.30); POTASSIUM 4.5 mmol/L (3.5-5.1)
[2024-07-25 05:18] LABS: HEMOGLOBIN 9.8 g/dL (12.0-18.0); RBC 3.92 M/ul (4.3-5.7)
[2024-07-25 05:22] LABS: BASOPHILS 0.1 % (0-2); EOSINOPHILS 0.4 % (0-6); HEMATOCRIT 29.8 % (35.0-50.0); LYMPHOCYTES 14.9 % (24-44); MCHC 32.9 g/dl (30-36); MONOCYTES 8.7 % (0-12); NEUTROPHILS 75.9 % (39-80); PLATELET COUNT 216 K/uL (140-440); RDW 15.9 (10.5-15.0)
[2024-07-25 05:28] LABS: ANION GAP 13.2 (7-21); BUN/CREATININE RATIO 36.24 (6.0-28.6); CALCIUM 8.4 mg/dL (8.5-10.1); CREATININE, SERUM 1.49 mg/dL (0.70-1.30); POTASSIUM 4.2 mmol/L (3.5-5.1)
[2024-07-25 05:35] LABS: ALBUMIN 2.3 g/dL (3.4-5.0); ALBUMIN/GLOBULIN RATIO 0.88 (1.1-2.4); BILIRUBIN, DIRECT 0.1 mg/dL (0.0-0.2); BILIRUBIN, INDIRECT 0.3 (0.1-0.7); BILIRUBIN, TOTAL 0.4 ng/dL (0.2-1.0); MAGNESIUM 1.6 mg/dL (1.8-2.4); PHOSPHORUS, INORGANIC 3.2 mg/dL (2.5-4.9); PROTEIN, TOTAL 4.9 g/dL (6.4-8.2)
[2024-07-25] MEDS ORDERED: MAGNESIUM SULFATE 2 GM/50 ML BAG IV SCH (09:00)
[2024-07-25] MEDS ORDERED: CEFTRIAXONE/SODIUM CHLORIDE 2 GM/100 ML PIGGYBACK IV SCH (09:00)
[2024-07-25 10:25] LABS: ANION GAP 15.4 (7-21); BUN/CREATININE RATIO 35.17 (6.0-28.6); CALCIUM 8.5 mg/dL (8.5-10.1); CREATININE, SERUM 1.45 mg/dL (0.70-1.30); POTASSIUM 4.4 mmol/L (3.5-5.1)
[2024-07-25] MEDS ORDERED: PHARMACY RENAL DOSE ADJUSTMENT 1 DOSE MISC PO SCH (12:00)
[2024-07-25] MEDS ORDERED: ENOXAPARIN SODIUM 40 MG/0.4 ML SYR SUB-Q SCH (14:52)
[2024-07-25] MEDS ORDERED: LACTATED RINGER'S 1,000 ML IV ONE (19:00)
[2024-07-25] MEDS ORDERED: METOPROLOL TARTRATE 5 MG/5 ML VIAL IV SCH (20:00)
[2024-07-25] MEDS ORDERED: FENTANYL 12 MCG/HR 1 EA TDSY TD SCH (21:00)
[2024-07-26] VITALS (37 sets, daily range): BP systolic 40–160; BP diastolic 31–125
[2024-07-26 05:52] LABS: BASOPHILS 0.2 % (0-2); EOSINOPHILS 1.7 % (0-6); HEMATOCRIT 29.3 % (35.0-50.0); HEMOGLOBIN 9.6 g/dL (12.0-18.0); LYMPHOCYTES 28.8 % (24-44); MCH 25.1 (27-36); MCHC 32.9 g/dl (30-36); MCV 76.4 fl (81-99); MONOCYTES 7.5 % (0-12); NEUTROPHILS 61.8 % (39-80); PLATELET COUNT 170 K/uL (140-440); RBC 3.84 M/ul (4.3-5.7); RDW 16.1 (10.5-15.0)
[2024-07-26 06:20] LABS: ALBUMIN/GLOBULIN RATIO 0.74 (1.1-2.4); ANION GAP 9.9 (7-21); BILIRUBIN, TOTAL 0.5 ng/dL (0.2-1.0); BUN/CREATININE RATIO 37.28 (6.0-28.6); CALCIUM 8.2 mg/dL (8.5-10.1); CREATININE, SERUM 1.18 mg/dL (0.70-1.30); MAGNESIUM 2.2 mg/dL (1.8-2.4); POTASSIUM 3.9 mmol/L (3.5-5.1); PROTEIN, TOTAL 4.7 g/dL (6.4-8.2)
[2024-07-26] MEDS ORDERED: VANCOMYCIN PER PHARMACY PROTOCOL IV SCH (10:39)
[2024-07-26] MEDS ORDERED: DAPTOmycin 500 MG/10 ML VIAL IV SCH (11:06)
[2024-07-26] MEDS ORDERED: LINEZOLID 300 ML IV SCH (11:40)
[2024-07-26] MEDS ORDERED: LINEZOLID 600 MG BAG IV SCH (11:42)
[2024-07-26] MEDS ORDERED: NALOXONE HCL 0.4 MG SYR ONE (17:06)
--- NOTE | 2024-07-26 23:07 | EKG ---
[facility] [address] [facility] [place] [address] Signed Atrial fibrillation with rapid ventricular response Rightward axis Low voltage QRS Nonspecific intraventricular conduction delay Nonspecific ST and T wave abnormality Abnormal ECG When compared with ECG of 10-APR-2022 04:12, Nonspecific intraventricular conduction delay has replaced Right bundle branch block Confirmed by Keli Black MD () on 07/26/2024 11:06:49 PM Electronically Signed By: KELI BLACK MD 07/26/24 2307 PATIENT NAME: DEXTER DAVE Electrocardiogram DATE OF : 40 PHYSICIAN: KELI BLACK MD REPORT #: [id number] REPORT IS CONFIDENTIAL AND NOT TO BE RELEASED WITHOUT AUTHORIZATION
[2024-07-27] VITALS (37 sets, daily range): BP systolic 68–151; BP diastolic 47–108
[2024-07-27 05:42] LABS: BASOPHILS 0.3 % (0-2); EOSINOPHILS 1.6 % (0-6); HEMATOCRIT 28.9 % (35.0-50.0); HEMOGLOBIN 9.6 g/dL (12.0-18.0); LYMPHOCYTES 25.4 % (24-44); MCH 25.3 (27-36); MCHC 33.4 g/dl (30-36); MCV 75.7 fl (81-99); MONOCYTES 6.5 % (0-12); NEUTROPHILS 66.2 % (39-80); PLATELET COUNT 194 K/uL (140-440); RBC 3.82 M/ul (4.3-5.7); RDW 16.7 (10.5-15.0)
[2024-07-27 05:58] LABS: ALBUMIN 2.2 g/dL (3.4-5.0); ALBUMIN/GLOBULIN RATIO 0.88 (1.1-2.4); BILIRUBIN, TOTAL 0.4 ng/dL (0.2-1.0); BUN/CREATININE RATIO 35.83 (6.0-28.6); CALCIUM 8.2 mg/dL (8.5-10.1); CREATININE, SERUM 1.2 mg/dL (0.70-1.30); PROTEIN, TOTAL 4.7 g/dL (6.4-8.2)
[2024-07-27] MEDS ORDERED: OLANZapine 10 MG VIAL IM PRN (17:45)
[2024-07-27 18:07] LABS: HEMATOCRIT 34.8 % (35.0-50.0); HEMOGLOBIN 10.4 g/dL (12.0-18.0); MCH 24.6 (27-36); MCHC 29.8 g/dl (30-36); MCV 82.5 fl (81-99); PLATELET COUNT 215 K/uL (140-440); RBC 4.22 M/ul (4.3-5.7); RDW 16.9 (10.5-15.0)
[2024-07-27 18:25] LABS: ALBUMIN/GLOBULIN RATIO 0.8 (1.1-2.4); ANION GAP 26.8 (7-21); BILIRUBIN, TOTAL 0.4 ng/dL (0.2-1.0); BUN/CREATININE RATIO 25.71 (6.0-28.6); CALCIUM 7.8 mg/dL (8.5-10.1); CREATININE, SERUM 1.4 mg/dL (0.70-1.30); POTASSIUM 3.8 mmol/L (3.5-5.1); PROTEIN, TOTAL 4.5 g/dL (6.4-8.2)
[2024-07-27 18:32] LABS: EOSINOPHILS, MANUAL DIFF 1; LYMPHOCYTES, MANUAL DIFF 74; NEUTROPHILS, MANUAL DIFF 25
[2024-07-27] MEDS ORDERED: KETAMINE in NS 50 MG/5 ML SYR IV ONE (18:45)
[2024-07-27] MEDS ORDERED: HEParin SOD (PORCINE) 5,000 UNIT/ML VIAL IV ONE (19:15)
[2024-07-27] MEDS ORDERED: HEPARIN SOD,PORK IN 0.45% NACL 500 ML IV SCH (19:15)
[2024-07-27 19:26] LABS: PARTIAL THROMBOPLASTIN TIME 30.5 Sec (22.9-41.3)
[2024-07-27 19:27] LABS: INR 1.14 (0.80-1.30); PROTIME 14.6 Sec (11.2-14.2)
[2024-07-27] MEDS ORDERED: ondansetron HCL 4 MG/2 ML VIAL IV PRN (20:30)
[2024-07-27] MEDS ORDERED: PROCHLORPERAZINE 25 MG SUPP PR PRN (20:30)
[2024-07-27] MEDS ORDERED: KETOROLAC TROMETHAMINE 15 MG/ML VIAL IV PRN (20:30)
[2024-07-27] MEDS ORDERED: ARTIFICIAL TEARS 15 ML BTL OU PRN (20:30)
[2024-07-27] MEDS ORDERED: MORPHINE SULFATE 4 MG/ML VIAL IV PRN (20:30)
[2024-07-27] MEDS ORDERED: LORazepam 2 MG/ML VIAL IV PRN (20:30)
[2024-07-27] MEDS ORDERED: ATROPINE SULFATE 1% OPTH DROPS SL PRN (20:30)
[2024-07-27] MEDS ORDERED: HALOPERIDOL LACTATE 5 MG/ML VIAL IV PRN (20:30)
[2024-07-28] MEDS ORDERED: MORPHINE SULFATE 4 MG/ML VIAL IV PRN (07:30)
[2024-07-28] MEDS ORDERED: SCOPOLAMINE 1 MG/3 DAYS PATCH 1 EACH TDSY TD SCH (17:26)
[2024-07-28] MEDS ORDERED: FENTANYL 12 MCG/HR 1 EA TDSY TD SCH (21:00)
[2024-07-30] MEDS ORDERED: SCOPOLAMINE 1 MG/3 DAYS PATCH 1 EACH TDSY TD SCH (09:00)
--- NOTE | 2024-07-30 17:05 | EKG ---
[facility] [address] [facility] [place] [address] Signed Atrial fibrillation with rapid ventricular response Right bundle branch block Left posterior fascicular block Bifascicular block Septal infarct , age undetermined T wave abnormality, consider inferior ischemia Abnormal ECG When compared with ECG of 25-JUL-2024 17:32, Right bundle branch block has replaced Nonspecific intraventricular conduction delay Septal infarct is now present Confirmed by Gabino Emanuel DO ([id number]) on 07/30/2024 5:05:47 PM Electronically Signed By: GABINO EMANUEL DO 07/30/24 1705 PATIENT NAME: DEXTER DAVE Electrocardiogram DATE OF : 40 PHYSICIAN: GABINO EMANUEL DO REPORT #: [id number] REPORT IS CONFIDENTIAL AND NOT TO BE RELEASED WITHOUT AUTHORIZATION
--- NOTE | 2024-07-30 17:06 | EKG ---
[facility] [address] [facility] [place] [address] Signed Atrial fibrillation Low voltage QRS Nonspecific ST abnormality Abnormal QRS-T angle, consider primary T wave abnormality Prolonged QT Abnormal ECG No previous ECGs available Confirmed by James Emanuel DO ([id number]) on 07/30/2024 5:05:53 PM Electronically Signed By: JAMES EMANUEL DO 07/30/24 1706 PATIENT NAME: RAMONA DAVEDANIEL SOLER Electrocardiogram DATE OF : 40 PHYSICIAN: JAMES EMANUEL DO REPORT #: [id number] REPORT IS CONFIDENTIAL AND NOT TO BE RELEASED WITHOUT AUTHORIZATION
== END 2024-07-29 08:45 | DRG 871 ==
LOC: ED 07:51 → CCU 12:22 → MS 07-27 22:15
PROVIDERS: Emergency Medicine; Student in an Organized Health Care Education/Training Program; ADMIT Family Medicine; ATTEND Family Medicine
PROC: 0T9B70Z Drainage of Bladder with Drainage Device, Via Natural or Artificial Opening (ICD-10-PCS; principal; 2024-07-24)
PROC: 3E033XZ Introduction of Vasopressor into Peripheral Vein, Percutaneous Approach (ICD-10-PCS; 2024-07-24)
PROC: 3E03329 Introduction of Other Anti-infective into Peripheral Vein, Percutaneous Approach (ICD-10-PCS; 2024-07-24)
DX: A41.9 Sepsis, unspecified organism (principal); I21.4 Non-ST elevation (NSTEMI) myocardial infarction; J96.01 Acute respiratory failure with hypoxia; F05 Delirium due to known physiological condition; M62.82 Rhabdomyolysis; N39.0 Urinary tract infection, site not specified; E87.20 Acidosis, unspecified; N17.9 Acute kidney failure, unspecified; Z51.5 Encounter for palliative care; Z66 Do not resuscitate; I48.91 Unspecified atrial fibrillation; I12.9 Hypertensive chronic kidney disease with stage 1 through stage 4 chronic kidney disease, or unspecified chronic kidney disease; N18.30 Chronic kidney disease, stage 3 unspecified; R29.6 Repeated falls; E87.6 Hypokalemia; E83.42 Hypomagnesemia; Z87.891 Personal history of nicotine dependence; Z85.46 Personal history of malignant neoplasm of prostate; E11.65 Type 2 diabetes mellitus with hyperglycemia; T68.XXXA Hypothermia, initial encounter; B95.2 Enterococcus as the cause of diseases classified elsewhere; B96.89 Other specified bacterial agents as the cause of diseases classified elsewhere; W18.30XA Fall on same level, unspecified, initial encounter; X31.XXXA Exposure to excessive natural cold, initial encounter; R45.1 Restlessness and agitation; F41.0 Panic disorder [episodic paroxysmal anxiety]; I25.2 Old myocardial infarction; Z85.72 Personal history of non-Hodgkin lymphomas; Z85.038 Personal history of other malignant neoplasm of large intestine; Z95.5 Presence of coronary angioplasty implant and graft; Z90.89 Acquired absence of other organs; Z88.8 Allergy status to other drugs, medicaments and biological substances; Z79.02 Long term (current) use of antithrombotics/antiplatelets; Z79.4 Long term (current) use of insulin; Z79.01 Long term (current) use of anticoagulants; Z79.899 Other long term (current) drug therapy; Z91.148 Patient's other noncompliance with medication regimen for other reason
CPT/HCPCS: 36415; 70450; 70551; 71045; 71260; 73030; 80048; 80053; 80076; 81001; 82010; 82140; 82553; 82800; 82947; 83036; 83605; 83735; 84100; 84439; 84443; 84484; 85025; 85379; 85610; 85730; 87040; 87077; 87088; 87186; 93005; 93010; 94799; J0696; J1644; J1650; J1815; J2020; J2060; J2270; J2310; J3010; J3475; J3480; J3490; J7030; J7042; J7060; J7121